=== PATIENT | male | born 1955 | race Caucasian/White ===

== ENCOUNTER 2021-12-08 19:23 | Inpatient (IN) | payer OTHER, MEDICAID ==
[2021-12-08] MEDS ORDERED: cefTRIAXone\\ROCEPHIN 1 GM VIAL ONE (19:48)
[2021-12-08] MEDS ORDERED: Vancomycin 1 GM/200 ML BAG ONE (19:48)
[2021-12-08 20:09] LABS: Hemoglobin 14.9 g/dL (14.0-18.0); Mean Corpuscular HGB CONC 32.3 g/dL (32.0-36.0); Mean Corpuscular Volume 89.7 fL (78.0-98.0); Mean Platelet Volume 9.1 fL (7.4-10.4); Platelet Count 256 thou/uL (130-400); RBC Distribution Width 12.9 % (11.5-14.5); Red Blood Cell (RBC) Count 5.16 mill/uL (4.70-6.10); White Blood Cell (WBC) Count 22.9 thou/uL (4.8-10.8)
[2021-12-08 20:12] LABS: Base Excess -18.4 mEq/L (-2.0 to +3.0); Calcium, Ionized (venous) 1.07 mmol/L (1.16-1.32); Chloride (VBG) 95 mmol/L (98-106); Hemoglobin (Hb) 15.6 g/dL (12.6-17.4); Potassium (VBG) 6.03 mmol/L (3.70-5.30); Sodium 127.1 mmol/L (133-146)
[2021-12-08 20:14] LABS: Bilirubin Negative (Negative); Blood, Urine 3+ (Negative); Clarity Extra Turbid (Clear); Glucose, Urine (Dipstick) Greater than 1000 mg/dL (Negative); Ketone, Urine 60 mg/dL (Negative); Leukocyte 500 Leu/uL (Negative); Nitrite 1+ (Negative); Protein, Urine (Dipstick) 50 mg/dL (Neg-Trace); RBC/HPF 21-50 HPF (0-3); Specific Gravity, Urine 1.021 (1.002-1.036); Squamous Epithelial 0-3 HPF (0-3); Urobilinogen Normal mg/dL (Less than 2); WBC/HPF Greater than 50 HPF (0-3); pH, Urine 5.5 (5.0-9.0)
[2021-12-08 20:15] LABS: Bacteria/HPF 1+ HPF (None Seen)
[2021-12-08 20:23] LABS: Band 3 % (5-11); Lymphocytes 6 % (21-51); MDiff Complete? YES; Monocytes 4 % (0-10); Neutrophil 87 % (42-75)
[2021-12-08] MEDS ORDERED: Insulin Regular 300 UNITS/3 ML VIAL ONE (20:31)
[2021-12-08 20:34] LABS: ALT (SGPT) 7 U/L (8-55); AST (SGOT) 17 U/L (5-34); Albumin 3.9 g/dL (3.4-4.8); Alkaline Phosphatase 116 U/L (40-110); Anion Gap 32 mmol/L (10-20); BUN (Urea Nitrogen) 48 mg/dL (8.4-25.7); Bilirubin, Total 0.5 mg/dL (0.2-1.2); Calc. Creatinine Clearance 0 mL/min (70-130); Calcium 8.9 mg/dL (7.8-10.44); Carbon Dioxide 8 mmol/L (23-31); Chloride 93 mmol/L (98-107); Estimated GFR 23; Globulin 4.2 g/dL (2.4-3.5); Lipase 7 U/L (8-78); Potassium 6.3 mmol/L (3.5-5.1); Protein, Total 8.1 g/dL (5.8-8.1); Sodium 127 mmol/L (136-145)
[2021-12-08 20:37] LABS: Glucose 789 mg/dL (80-115)
[2021-12-08] MEDS ORDERED: INSULIN REGULAR IN 0.9 % NACL 100 UNIT/100 ML BAG ONE (20:46)
[2021-12-08] MEDS ORDERED: Ondansetron ODT 4 MG TAB PO PRN (21:02)
[2021-12-08] MEDS ORDERED: Acetaminophen 325 MG TAB PO PRN (21:02)
[2021-12-08] MEDS ORDERED: Acetaminophen 650 MG Suppository PR PRN (21:02)
[2021-12-08] MEDS ORDERED: Dextrose 5 %-0.45 % NaCl 1,000 ML IV PRN (21:02)
[2021-12-08] MEDS ORDERED: Electrolyte Replacement Protocol 1 EACH IVPB PRN (21:02)
[2021-12-08] MEDS ORDERED: NS 0.9% w/ 20 MEQ KCL 1,000 ML IV PRN ×2 (21:02)
[2021-12-08] MEDS ORDERED: Sodium Chloride 0.9% 1,000 ML IV PRN ×4 (21:02)
[2021-12-08] MEDS ORDERED: HUMULIN R 100 UNITS in Sodium Chloride 0.9% 100 ML IVPB SCH (21:15)
[2021-12-08 21:39] LABS: pH (venous) 7.17 (7.32-7.43)
[2021-12-08 21:40] LABS: Actual Bicarbonate (HCO3v) 8 mEq/L (22-28)
[2021-12-08] MEDS ORDERED: Electrolyte Replacement Protocol 1 EACH FS SCH (21:45)
[2021-12-08 22:25] LABS: Magnesium 2.4 mg/dL (1.6-2.6); Phosphorus 6.7 mg/dL (2.3-4.7)
[2021-12-08 22:32] VITALS: BMI 20.2
[2021-12-08] MEDS ORDERED: Cefepime 2 GM in Sodium Chloride 0.9% 100 ML IVPB SCH (23:00)
[2021-12-09] LABS: Lactic Acid 3.3 mmol/L (0.5-2.2)
[2021-12-09 00:09] LABS: Calcium 8.6 mg/dL (7.8-10.44); Chloride 103 mmol/L (98-107); Potassium 4.6 mmol/L (3.5-5.1); Sodium 134 mmol/L (136-145)
[2021-12-09 00:17] LABS: Glucose 333 mg/dL (80-115)
[2021-12-09 00:21] LABS: Calc. Creatinine Clearance 26 mL/min (70-130); Estimated GFR 29
[2021-12-09 00:22] LABS: BUN (Urea Nitrogen) 44 mg/dL (8.4-25.7)
[2021-12-09 00:32] LABS: Carbon Dioxide Less than 8 mmol/L (23-31)
[2021-12-09] MEDS: D5 1/2 NS w/20 mEq KCL 1,000 ML IV PRN ×2 (01:08→05:00)
[2021-12-09 04:41] LABS: Anion Gap 19 mmol/L (10-20); BUN (Urea Nitrogen) 38 mg/dL (8.4-25.7); Calc. Creatinine Clearance 31 mL/min (70-130); Calcium 8.7 mg/dL (7.8-10.44); Carbon Dioxide 15 mmol/L (23-31); Chloride 107 mmol/L (98-107); Estimated GFR 37; Glucose 297 mg/dL (80-115); Potassium 4.7 mmol/L (3.5-5.1); Sodium 136 mmol/L (136-145)
[2021-12-09] MEDS: Enoxaparin Sodium 30 MG/0.3 ML SYRINGE SC SCH ×2 (07:13→20:42)
[2021-12-09 07:34] LABS: #Lymphocytes 1.6 thou/uL (1.20-3.40); #Monocytes 1.2 thou/uL (0.11-0.59); #Neutrophils 15.9 thou/uL (1.40-6.50); %Basophils 0.2 % (0.0-1.0); %Eosinophils 0.1 % (0.0-10.0); %Lymphocytes 8.7 % (21.0-51.0); %Monocytes 6.6 % (0.0-10.0); %Neutrophils 84.4 % (42.0-75.0); Hemoglobin 12.4 g/dL (14.0-18.0); Mean Corpuscular HGB CONC 32.8 g/dL (32.0-36.0); Mean Corpuscular Hemoglobin 28.7 pg (27.0-31.0); Mean Corpuscular Volume 87.6 fL (78.0-98.0); Mean Platelet Volume 8.7 fL (7.4-10.4); Platelet Count 234 thou/uL (130-400); RBC Distribution Width 12.4 % (11.5-14.5); Red Blood Cell (RBC) Count 4.33 mill/uL (4.70-6.10); White Blood Cell (WBC) Count 18.8 thou/uL (4.8-10.8)
[2021-12-09 07:55] LABS: Anion Gap 15 mmol/L (10-20); BUN (Urea Nitrogen) 33 mg/dL (8.4-25.7); Calc. Creatinine Clearance 36 mL/min (70-130); Calcium 8.4 mg/dL (7.8-10.44); Carbon Dioxide 15 mmol/L (23-31); Chloride 108 mmol/L (98-107); Estimated GFR 44; Glucose 293 mg/dL (80-115); Potassium 4.1 mmol/L (3.5-5.1); Sodium 134 mmol/L (136-145)
[2021-12-09] MEDS ORDERED: Enoxaparin Sodium 40 MG/0.4 ML SYRINGE SC SCH (09:00)
[2021-12-09] MEDS ORDERED: VANCOMYCIN 1.25 GM/250 ML BAG 1.25 GM in Premix Bag 1 BAG IVPB SCH (09:00)
[2021-12-09] MEDS ORDERED: Insulin Glargine 30 UNITS/0.3 ML VIAL SC SCH ×2 (10:30→12:00)
[2021-12-09] MEDS ORDERED: Dextrose 50% Abboject 50 ML SYRINGE SLOW IVP PRN (11:57)
[2021-12-09] MEDS ORDERED: Dextrose 5% in Water 1,000 ML IV PRN (11:57)
[2021-12-09] MEDS ORDERED: Potassium Chloride 20 MEQ in Premix Bag 1 BAG IVPB SCH (12:00)
[2021-12-09] MEDS: HumaLOG 300 UNITS/3 ML VIAL SC SCH ×2 (12:08→18:08)
[2021-12-09] MEDS: Insulin Glargine 30 UNITS/0.3 ML VIAL SC SCH (12:13)
[2021-12-09 12:17] LABS: Anion Gap 15 mmol/L (10-20); BUN (Urea Nitrogen) 27 mg/dL (8.4-25.7); Calc. Creatinine Clearance 41 mL/min (70-130); Calcium 8.4 mg/dL (7.8-10.44); Carbon Dioxide 12 mmol/L (23-31); Chloride 111 mmol/L (98-107); Estimated GFR 51; Glucose 150 mg/dL (80-115); Potassium 4.3 mmol/L (3.5-5.1); Sodium 134 mmol/L (136-145)
[2021-12-09] MEDS ORDERED: D5 1/2 NS w/20 mEq KCL 1,000 ML IV SCH (14:01)
[2021-12-09] MEDS: HumaLOG 300 UNITS/3 ML VIAL SC PRN (20:42)
[2021-12-09] MEDS: Ondansetron PF 4 MG/2 ML Vial IVP PRN (20:42)
[2021-12-09 21:44] LABS: Vancomycin, Random 6.1 ug/mL (See Comment)
[2021-12-09] MEDS ORDERED: Vancomycin HCl 500 MG in Sodium Chloride 0.9% 100 ML IVPB SCH (22:00)
[2021-12-09] MEDS ORDERED: Vancomycin 1 GM in Premix Bag 1 BAG IVPB SCH (22:00)
[2021-12-09] MEDS ORDERED: Cefepime 2 GM in Sodium Chloride 0.9% 100 ML IVPB SCH (22:00)
[2021-12-10] MEDS ORDERED: Ondansetron PF 4 MG/2 ML Vial IVP SCH (00:45)
[2021-12-10] MEDS: Sodium Chloride 0.9% 1,000 ML IV SCH ×2 (00:58→11:09)
[2021-12-10] MEDS ORDERED: Pantoprazole 40 MG VIAL IVP SCH (01:00)
[2021-12-10 01:28] LABS: #Lymphocytes 1.4 thou/uL (1.20-3.40); #Monocytes 0.8 thou/uL (0.11-0.59); #Neutrophils 14.3 thou/uL (1.40-6.50); %Eosinophils 0.1 % (0.0-10.0); %Lymphocytes 8.4 % (21.0-51.0); %Neutrophils 86.5 % (42.0-75.0); Mean Corpuscular HGB CONC 33.4 g/dL (32.0-36.0); Mean Corpuscular Hemoglobin 28.6 pg (27.0-31.0); Mean Corpuscular Volume 85.6 fL (78.0-98.0); Mean Platelet Volume 8.3 fL (7.4-10.4); Platelet Count 234 thou/uL (130-400); RBC Distribution Width 12.9 % (11.5-14.5); Red Blood Cell (RBC) Count 4.89 mill/uL (4.70-6.10); White Blood Cell (WBC) Count 16.5 thou/uL (4.8-10.8)
[2021-12-10 01:44] LABS: Lactic Acid 1.3 mmol/L (0.5-2.2)
[2021-12-10 01:48] LABS: ALT (SGPT) 14 U/L (8-55); AST (SGOT) 29 U/L (5-34); Albumin 3.5 g/dL (3.4-4.8); Alkaline Phosphatase 88 U/L (40-110); Anion Gap 22 mmol/L (10-20); BUN (Urea Nitrogen) 22 mg/dL (8.4-25.7); Bilirubin, Total 0.6 mg/dL (0.2-1.2); Calc. Creatinine Clearance 45 mL/min (70-130); Carbon Dioxide 17 mmol/L (23-31); Chloride 103 mmol/L (98-107); Estimated GFR 58; Globulin 3.6 g/dL (2.4-3.5); Glucose 292 mg/dL (80-115); Potassium 4.2 mmol/L (3.5-5.1); Protein, Total 7.1 g/dL (5.8-8.1); Sodium 138 mmol/L (136-145)
[2021-12-10 04:27] LABS: Anion Gap 17 mmol/L (10-20); BUN (Urea Nitrogen) 21 mg/dL (8.4-25.7); Calc. Creatinine Clearance 56 mL/min (70-130); Calcium 7.6 mg/dL (7.8-10.44); Carbon Dioxide 16 mmol/L (23-31); Chloride 110 mmol/L (98-107); Estimated GFR 74; Glucose 274 mg/dL (80-115); Potassium 3.6 mmol/L (3.5-5.1); Sodium 139 mmol/L (136-145)
[2021-12-10] MEDS: HumaLOG 300 UNITS/3 ML VIAL SC PRN (05:56)
[2021-12-10] MEDS: HumaLOG 300 UNITS/3 ML VIAL SC SCH ×3 (07:16→15:08)
[2021-12-10] MEDS: Pantoprazole 40 MG VIAL IVP SCH ×2 (07:24→20:18)
[2021-12-10] MEDS: Enoxaparin Sodium 30 MG/0.3 ML SYRINGE SC SCH (07:24)
[2021-12-10] MEDS: Insulin Glargine 30 UNITS/0.3 ML VIAL SC SCH (07:25)
[2021-12-10] MEDS ORDERED: Insulin Glargine 30 UNITS/0.3 ML VIAL SC SCH ×3 (09:00→10:45)
[2021-12-10] MEDS ORDERED: CEFEPIME IVPB PRN (11:06)
[2021-12-10 11:32] LABS: Prothrombin Time 13.4 sec (12.0-14.7)
[2021-12-10] MEDS: Cefepime 1 GM in Sodium Chloride 0.9% 100 ML IVPB SCH ×2 (12:29→23:27)
[2021-12-11 04:04] LABS: #Lymphocytes 2.4 thou/uL (1.20-3.40); #Monocytes 0.8 thou/uL (0.11-0.59); #Neutrophils 9.5 thou/uL (1.40-6.50); %Basophils 0.3 % (0.0-1.0); %Eosinophils 0.3 % (0.0-10.0); %Lymphocytes 18.9 % (21.0-51.0); %Monocytes 6.1 % (0.0-10.0); %Neutrophils 74.4 % (42.0-75.0); Hemoglobin 12.9 g/dL (14.0-18.0); Mean Corpuscular HGB CONC 33.2 g/dL (32.0-36.0); Mean Corpuscular Hemoglobin 28.8 pg (27.0-31.0); Mean Corpuscular Volume 86.7 fL (78.0-98.0); Mean Platelet Volume 8.6 fL (7.4-10.4); Platelet Count 213 thou/uL (130-400); RBC Distribution Width 12.8 % (11.5-14.5); Red Blood Cell (RBC) Count 4.49 mill/uL (4.70-6.10); White Blood Cell (WBC) Count 12.8 thou/uL (4.8-10.8)
[2021-12-11 04:26] LABS: Anion Gap 16 mmol/L (10-20); BUN (Urea Nitrogen) 16 mg/dL (8.4-25.7); Calc. Creatinine Clearance 56 mL/min (70-130); Calcium 8.7 mg/dL (7.8-10.44); Carbon Dioxide 21 mmol/L (23-31); Chloride 104 mmol/L (98-107); Estimated GFR 76; Glucose 216 mg/dL (80-115); Potassium 3.4 mmol/L (3.5-5.1); Sodium 138 mmol/L (136-145)
[2021-12-11] MEDS: HumaLOG 300 UNITS/3 ML VIAL SC PRN ×2 (06:09→20:58)
[2021-12-11] MEDS ORDERED: Potassium Chloride 20 MEQ TAB PO SCH (08:30)
[2021-12-11] MEDS ORDERED: VANCOMYCIN IVPB PRN (09:55)
[2021-12-11] MEDS: Enoxaparin Sodium 40 MG/0.4 ML SYRINGE SC SCH (10:20)
[2021-12-11] MEDS: Pantoprazole 40 MG VIAL IVP SCH ×2 (10:21→20:56)
[2021-12-11] MEDS: Insulin Glargine 30 UNITS/0.3 ML VIAL SC SCH (10:21)
[2021-12-11] MEDS: HumaLOG 300 UNITS/3 ML VIAL SC SCH ×3 (10:21→16:55)
[2021-12-11] MEDS: VANCOMYCIN 1.25 GM/250 ML BAG 1.25 GM in Premix Bag 1 BAG IVPB SCH (10:42)
[2021-12-11] MEDS: Cefepime 1 GM in Sodium Chloride 0.9% 100 ML IVPB SCH ×2 (12:29→23:38)
[2021-12-11] MEDS: Ondansetron PF 4 MG/2 ML Vial IVP PRN (16:02)
[2021-12-11] MEDS: Baclofen 10 MG TAB PO SCH (20:56)
[2021-12-12 07:02] LABS: #Eosinphils 0.1 thou/uL (0.0-0.7); #Lymphocytes 2.3 thou/uL (1.20-3.40); #Monocytes 0.6 thou/uL (0.11-0.59); #Neutrophils 6.9 thou/uL (1.40-6.50); %Basophils 0.1 % (0.0-1.0); %Lymphocytes 23.2 % (21.0-51.0); %Monocytes 6.5 % (0.0-10.0); %Neutrophils 69.3 % (42.0-75.0); Hemoglobin 13.4 g/dL (14.0-18.0); Mean Corpuscular HGB CONC 32.7 g/dL (32.0-36.0); Mean Corpuscular Hemoglobin 28.7 pg (27.0-31.0); Mean Corpuscular Volume 87.9 fL (78.0-98.0); Mean Platelet Volume 8.4 fL (7.4-10.4); Platelet Count 224 thou/uL (130-400); RBC Distribution Width 12.6 % (11.5-14.5); Red Blood Cell (RBC) Count 4.66 mill/uL (4.70-6.10); White Blood Cell (WBC) Count 9.9 thou/uL (4.8-10.8)
[2021-12-12 07:21] LABS: Anion Gap 14 mmol/L (10-20); BUN (Urea Nitrogen) 14 mg/dL (8.4-25.7); Calc. Creatinine Clearance 52 mL/min (70-130); Calcium 8.8 mg/dL (7.8-10.44); Carbon Dioxide 25 mmol/L (23-31); Chloride 104 mmol/L (98-107); Estimated GFR 69; Glucose 86 mg/dL (80-115); Potassium 3.3 mmol/L (3.5-5.1); Sodium 140 mmol/L (136-145)
[2021-12-12] MEDS ORDERED: Potassium Chloride 20 MEQ TAB PO SCH (08:00)
[2021-12-12] MEDS: Insulin Glargine 30 UNITS/0.3 ML VIAL SC SCH (08:43)
[2021-12-12] MEDS: Pantoprazole 40 MG VIAL IVP SCH ×2 (08:44→21:45)
[2021-12-12] MEDS: Enoxaparin Sodium 40 MG/0.4 ML SYRINGE SC SCH (08:44)
[2021-12-12] MEDS: Baclofen 10 MG TAB PO SCH ×3 (08:44→21:45)
[2021-12-12] MEDS: HumaLOG 300 UNITS/3 ML VIAL SC SCH ×3 (08:45→18:02)
[2021-12-12] MEDS: VANCOMYCIN 1.25 GM/250 ML BAG 1.25 GM in Premix Bag 1 BAG IVPB SCH (08:57)
[2021-12-12] MEDS: Cefepime 1 GM in Sodium Chloride 0.9% 100 ML IVPB SCH (12:07)
[2021-12-12] MEDS: HumaLOG 300 UNITS/3 ML VIAL SC PRN (18:02)
[2021-12-12] MEDS: Metoclopramide HCl 10 MG/2 ML VIAL IVP SCH (21:45)
[2021-12-12] MEDS: Finasteride 5 MG TAB PO SCH (21:45)
[2021-12-13] MEDS: Cefepime 1 GM in Sodium Chloride 0.9% 100 ML IVPB SCH ×3 (00:01→23:22)
[2021-12-13] MEDS: HumaLOG 300 UNITS/3 ML VIAL SC PRN ×3 (05:26→17:31)
[2021-12-13] MEDS: Metoclopramide HCl 10 MG/2 ML VIAL IVP SCH ×3 (05:30→20:41)
[2021-12-13 05:55] LABS: #Eosinphils 0.1 thou/uL (0.0-0.7); #Lymphocytes 2.1 thou/uL (1.20-3.40); #Monocytes 0.8 thou/uL (0.11-0.59); %Basophils 0.1 % (0.0-1.0); %Eosinophils 1.3 % (0.0-10.0); %Lymphocytes 18.7 % (21.0-51.0); %Monocytes 7.1 % (0.0-10.0); %Neutrophils 72.7 % (42.0-75.0); Hemoglobin 13.2 g/dL (14.0-18.0); Mean Corpuscular HGB CONC 33.2 g/dL (32.0-36.0); Mean Corpuscular Hemoglobin 28.9 pg (27.0-31.0); Mean Corpuscular Volume 87.3 fL (78.0-98.0); Mean Platelet Volume 8.5 fL (7.4-10.4); Platelet Count 216 thou/uL (130-400); RBC Distribution Width 12.6 % (11.5-14.5); Red Blood Cell (RBC) Count 4.57 mill/uL (4.70-6.10)
[2021-12-13 06:20] LABS: Anion Gap 13 mmol/L (10-20); BUN (Urea Nitrogen) 14 mg/dL (8.4-25.7); Calc. Creatinine Clearance 65 mL/min (70-130); Calcium 8.3 mg/dL (7.8-10.44); Carbon Dioxide 24 mmol/L (23-31); Chloride 105 mmol/L (98-107); Estimated GFR 89; Glucose 193 mg/dL (80-115); Potassium 3.3 mmol/L (3.5-5.1); Sodium 139 mmol/L (136-145)
[2021-12-13] MEDS ORDERED: Potassium Chloride 20 MEQ TAB PO SCH (08:00)
[2021-12-13] MEDS: Baclofen 10 MG TAB PO SCH ×3 (09:42→20:35)
[2021-12-13] MEDS: HumaLOG 300 UNITS/3 ML VIAL SC SCH ×3 (09:42→17:30)
[2021-12-13] MEDS: Tamsulosin HCl 0.4 MG CAP PO SCH (09:42)
[2021-12-13] MEDS: Donepezil HCl 5 MG TAB PO SCH (09:43)
[2021-12-13] MEDS: Insulin Glargine 30 UNITS/0.3 ML VIAL SC SCH (09:43)
[2021-12-13] MEDS: Spironolactone 25 MG TAB PO SCH (09:44)
[2021-12-13] MEDS: Enoxaparin Sodium 40 MG/0.4 ML SYRINGE SC SCH (09:44)
[2021-12-13] MEDS: Pantoprazole 40 MG VIAL IVP SCH ×2 (09:44→20:36)
[2021-12-13 10:00] LABS: Vancomycin, Trough 10.2 ug/mL
[2021-12-13] MEDS: VANCOMYCIN 1.25 GM/250 ML BAG 1.25 GM in Premix Bag 1 BAG IVPB SCH (11:00)
[2021-12-13] MEDS: Finasteride 5 MG TAB PO SCH (20:36)
[2021-12-14] MEDS: Metoclopramide HCl 10 MG/2 ML VIAL IVP SCH ×3 (05:18→20:29)
[2021-12-14 06:41] LABS: Hemoglobin 13.3 g/dL (14.0-18.0); Mean Corpuscular Volume 87.4 fL (78.0-98.0); Red Blood Cell (RBC) Count 4.73 mill/uL (4.70-6.10); White Blood Cell (WBC) Count 9.6 thou/uL (4.8-10.8)
[2021-12-14 06:42] LABS: %Lymphocytes 24.7 % (21.0-51.0); %Neutrophils 62.1 % (42.0-75.0); Mean Corpuscular HGB CONC 32.2 g/dL (32.0-36.0); Mean Corpuscular Hemoglobin 28.2 pg (27.0-31.0); Mean Platelet Volume 8.1 fL (7.4-10.4); Platelet Count 224 thou/uL (130-400); RBC Distribution Width 12.8 % (11.5-14.5)
[2021-12-14 06:43] LABS: #Lymphocytes 2.4 thou/uL (1.20-3.40); %Basophils 0.8 % (0.0-1.0); %Eosinophils 3.5 % (0.0-10.0); %Monocytes 8.9 % (0.0-10.0)
[2021-12-14 06:44] LABS: #Eosinphils 0.3 thou/uL (0.0-0.7); #Monocytes 0.9 thou/uL (0.11-0.59)
[2021-12-14 06:52] LABS: Anion Gap 13 mmol/L (10-20); BUN (Urea Nitrogen) 13 mg/dL (8.4-25.7); Calc. Creatinine Clearance 62 mL/min (70-130); Calcium 8.7 mg/dL (7.8-10.44); Carbon Dioxide 24 mmol/L (23-31); Chloride 103 mmol/L (98-107); Estimated GFR 85; Glucose 153 mg/dL (80-115); Potassium 3.4 mmol/L (3.5-5.1); Sodium 137 mmol/L (136-145)
[2021-12-14] MEDS ORDERED: Potassium Chloride 20 MEQ TAB PO SCH (09:00)
[2021-12-14] MEDS: Baclofen 10 MG TAB PO SCH ×3 (09:29→20:29)
[2021-12-14] MEDS: Tamsulosin HCl 0.4 MG CAP PO SCH (09:29)
[2021-12-14] MEDS: Enoxaparin Sodium 40 MG/0.4 ML SYRINGE SC SCH (09:30)
[2021-12-14] MEDS: Insulin Glargine 30 UNITS/0.3 ML VIAL SC SCH (09:30)
[2021-12-14] MEDS: Donepezil HCl 5 MG TAB PO SCH (09:30)
[2021-12-14] MEDS: Spironolactone 25 MG TAB PO SCH (09:30)
[2021-12-14] MEDS: HumaLOG 300 UNITS/3 ML VIAL SC SCH ×3 (09:31→17:42)
[2021-12-14] MEDS: Pantoprazole 40 MG VIAL IVP SCH ×2 (09:31→20:29)
[2021-12-14] MEDS: VANCOMYCIN 1.25 GM/250 ML BAG 1.25 GM in Premix Bag 1 BAG IVPB SCH (09:55)
[2021-12-14] MEDS: Cefepime 1 GM in Sodium Chloride 0.9% 100 ML IVPB SCH ×2 (12:51→23:38)
[2021-12-14] MEDS: HumaLOG 300 UNITS/3 ML VIAL SC PRN (12:52)
[2021-12-14] MEDS: Finasteride 5 MG TAB PO SCH (20:29)
[2021-12-14] MEDS ORDERED: Metoclopramide HCl 10 MG/2 ML VIAL IVP PRN (20:52)
[2021-12-15 07:11] LABS: #Eosinphils 0.2 thou/uL (0.0-0.7); %Basophils 0.4 % (0.0-1.0); %Eosinophils 2.6 % (0.0-10.0); %Lymphocytes 24.3 % (21.0-51.0); %Monocytes 12.1 % (0.0-10.0); %Neutrophils 60.5 % (42.0-75.0); Hemoglobin 12.6 g/dL (14.0-18.0); Mean Corpuscular HGB CONC 32.9 g/dL (32.0-36.0); Mean Corpuscular Hemoglobin 28.8 pg (27.0-31.0); Mean Corpuscular Volume 87.4 fL (78.0-98.0); Mean Platelet Volume 8.3 fL (7.4-10.4); Platelet Count 229 thou/uL (130-400); RBC Distribution Width 12.8 % (11.5-14.5); Red Blood Cell (RBC) Count 4.38 mill/uL (4.70-6.10); White Blood Cell (WBC) Count 8.3 thou/uL (4.8-10.8)
[2021-12-15 07:31] LABS: Anion Gap 13 mmol/L (10-20); BUN (Urea Nitrogen) 13 mg/dL (8.4-25.7); Calc. Creatinine Clearance 64 mL/min (70-130); Calcium 8.5 mg/dL (7.8-10.44); Carbon Dioxide 23 mmol/L (23-31); Chloride 104 mmol/L (98-107); Estimated GFR 87; Glucose 193 mg/dL (80-115); Potassium 3.7 mmol/L (3.5-5.1); Sodium 136 mmol/L (136-145)
[2021-12-15] MEDS: Baclofen 10 MG TAB PO SCH ×3 (09:00→20:07)
[2021-12-15] MEDS: Spironolactone 25 MG TAB PO SCH (09:02)
[2021-12-15] MEDS: Pantoprazole 40 MG VIAL IVP SCH ×2 (09:02→20:07)
[2021-12-15] MEDS: Tamsulosin HCl 0.4 MG CAP PO SCH (09:03)
[2021-12-15] MEDS: Enoxaparin Sodium 40 MG/0.4 ML SYRINGE SC SCH (09:03)
[2021-12-15] MEDS: Donepezil HCl 5 MG TAB PO SCH (09:03)
[2021-12-15] MEDS: HumaLOG 300 UNITS/3 ML VIAL SC SCH ×3 (09:08→17:48)
[2021-12-15] MEDS: Insulin Glargine 30 UNITS/0.3 ML VIAL SC SCH (09:08)
[2021-12-15 10:08] LABS: Vancomycin, Trough 12.9 ug/mL
[2021-12-15] MEDS: VANCOMYCIN 1.25 GM/250 ML BAG 1.25 GM in Premix Bag 1 BAG IVPB SCH (11:17)
[2021-12-15] MEDS: HumaLOG 300 UNITS/3 ML VIAL SC PRN (12:00)
[2021-12-15] MEDS: Cefepime 1 GM in Sodium Chloride 0.9% 100 ML IVPB SCH (14:12)
[2021-12-15] MEDS: Finasteride 5 MG TAB PO SCH (20:06)
[2021-12-16] MEDS: Cefepime 1 GM in Sodium Chloride 0.9% 100 ML IVPB SCH ×3 (00:36→23:08)
[2021-12-16 06:32] LABS: #Eosinphils 0.3 thou/uL (0.0-0.7); #Monocytes 1.1 thou/uL (0.11-0.59); #Neutrophils 4.9 thou/uL (1.40-6.50); %Basophils 0.5 % (0.0-1.0); %Eosinophils 3.9 % (0.0-10.0); %Lymphocytes 24.2 % (21.0-51.0); %Monocytes 13.2 % (0.0-10.0); %Neutrophils 58.2 % (42.0-75.0); Hemoglobin 12.8 g/dL (14.0-18.0); Mean Corpuscular HGB CONC 32.8 g/dL (32.0-36.0); Mean Corpuscular Hemoglobin 28.6 pg (27.0-31.0); Mean Corpuscular Volume 87.1 fL (78.0-98.0); Platelet Count 226 thou/uL (130-400); RBC Distribution Width 12.7 % (11.5-14.5); Red Blood Cell (RBC) Count 4.47 mill/uL (4.70-6.10); White Blood Cell (WBC) Count 8.3 thou/uL (4.8-10.8)
[2021-12-16 06:52] LABS: Anion Gap 14 mmol/L (10-20); BUN (Urea Nitrogen) 13 mg/dL (8.4-25.7); Calc. Creatinine Clearance 58 mL/min (70-130); Calcium 8.5 mg/dL (7.8-10.44); Carbon Dioxide 24 mmol/L (23-31); Chloride 102 mmol/L (98-107); Estimated GFR 78; Glucose 199 mg/dL (80-115); Potassium 3.9 mmol/L (3.5-5.1); Sodium 136 mmol/L (136-145)
[2021-12-16] MEDS: Tamsulosin HCl 0.4 MG CAP PO SCH (08:14)
[2021-12-16] MEDS: HumaLOG 300 UNITS/3 ML VIAL SC SCH ×3 (08:14→16:49)
[2021-12-16] MEDS: Donepezil HCl 5 MG TAB PO SCH (08:14)
[2021-12-16] MEDS: Baclofen 10 MG TAB PO SCH ×3 (08:14→19:57)
[2021-12-16] MEDS: Insulin Glargine 30 UNITS/0.3 ML VIAL SC SCH (08:14)
[2021-12-16] MEDS: Pantoprazole 40 MG VIAL IVP SCH (08:14)
[2021-12-16] MEDS: Spironolactone 25 MG TAB PO SCH (08:14)
[2021-12-16] MEDS: Enoxaparin Sodium 40 MG/0.4 ML SYRINGE SC SCH (08:15)
[2021-12-16] MEDS: VANCOMYCIN 1.25 GM/250 ML BAG 1.25 GM in Premix Bag 1 BAG IVPB SCH (08:23)
[2021-12-16] MEDS: Finasteride 5 MG TAB PO SCH (19:58)
[2021-12-17 06:14] LABS: #Eosinphils 0.2 thou/uL (0.0-0.7); #Lymphocytes 2.4 thou/uL (1.20-3.40); #Monocytes 0.9 thou/uL (0.11-0.59); #Neutrophils 4.9 thou/uL (1.40-6.50); %Basophils 0.3 % (0.0-1.0); %Eosinophils 2.7 % (0.0-10.0); %Lymphocytes 28.6 % (21.0-51.0); %Monocytes 10.7 % (0.0-10.0); %Neutrophils 57.7 % (42.0-75.0); Hemoglobin 12.8 g/dL (14.0-18.0); Mean Corpuscular HGB CONC 33.2 g/dL (32.0-36.0); Mean Corpuscular Hemoglobin 28.9 pg (27.0-31.0); Mean Platelet Volume 7.9 fL (7.4-10.4); Platelet Count 245 thou/uL (130-400); RBC Distribution Width 12.8 % (11.5-14.5); Red Blood Cell (RBC) Count 4.45 mill/uL (4.70-6.10); White Blood Cell (WBC) Count 8.5 thou/uL (4.8-10.8)
[2021-12-17 06:25] LABS: Anion Gap 15 mmol/L (10-20); BUN (Urea Nitrogen) 13 mg/dL (8.4-25.7); Calc. Creatinine Clearance 54 mL/min (70-130); Calcium 8.5 mg/dL (7.8-10.44); Carbon Dioxide 23 mmol/L (23-31); Chloride 103 mmol/L (98-107); Estimated GFR 71; Glucose 265 mg/dL (80-115); Potassium 3.5 mmol/L (3.5-5.1); Sodium 137 mmol/L (136-145)
[2021-12-17] MEDS ORDERED: Potassium Chloride 20 MEQ TAB PO SCH (08:00)
[2021-12-17] MEDS: Baclofen 10 MG TAB PO SCH ×3 (08:32→20:02)
[2021-12-17] MEDS: Spironolactone 25 MG TAB PO SCH (08:32)
[2021-12-17] MEDS: Insulin Glargine 30 UNITS/0.3 ML VIAL SC SCH (08:33)
[2021-12-17] MEDS: Donepezil HCl 5 MG TAB PO SCH (08:33)
[2021-12-17] MEDS: Amlodipine 10 MG TAB PO SCH (08:33)
[2021-12-17] MEDS: Enoxaparin Sodium 40 MG/0.4 ML SYRINGE SC SCH (08:33)
[2021-12-17] MEDS: Tamsulosin HCl 0.4 MG CAP PO SCH (08:33)
[2021-12-17] MEDS: HumaLOG 300 UNITS/3 ML VIAL SC SCH ×3 (08:34→17:16)
[2021-12-17] MEDS: Cefepime 1 GM in Sodium Chloride 0.9% 100 ML IVPB SCH (13:01)
[2021-12-17] MEDS: HumaLOG 300 UNITS/3 ML VIAL SC PRN (13:02)
[2021-12-17] MEDS: Finasteride 5 MG TAB PO SCH (20:03)
[2021-12-18] MEDS: Cefepime 1 GM in Sodium Chloride 0.9% 100 ML IVPB SCH (01:27)
[2021-12-18] MEDS: Spironolactone 25 MG TAB PO SCH (08:13)
[2021-12-18] MEDS: Baclofen 10 MG TAB PO SCH ×3 (08:13→20:19)
[2021-12-18] MEDS: Enoxaparin Sodium 40 MG/0.4 ML SYRINGE SC SCH (08:13)
[2021-12-18] MEDS: Tamsulosin HCl 0.4 MG CAP PO SCH (08:13)
[2021-12-18] MEDS: Donepezil HCl 5 MG TAB PO SCH (08:13)
[2021-12-18] MEDS: Amlodipine 10 MG TAB PO SCH (08:14)
[2021-12-18] MEDS: Insulin Glargine 30 UNITS/0.3 ML VIAL SC SCH (08:14)
[2021-12-18] MEDS: HumaLOG 300 UNITS/3 ML VIAL SC SCH ×3 (08:18→17:34)
[2021-12-18] MEDS: HumaLOG 300 UNITS/3 ML VIAL SC PRN ×3 (12:24→20:21)
[2021-12-18] MEDS: Finasteride 5 MG TAB PO SCH (20:19)
[2021-12-19] MEDS: HumaLOG 300 UNITS/3 ML VIAL SC PRN ×4 (05:47→20:23)
[2021-12-19] MEDS: Baclofen 10 MG TAB PO SCH ×3 (08:43→20:22)
[2021-12-19] MEDS: Spironolactone 25 MG TAB PO SCH (08:43)
[2021-12-19] MEDS: Amlodipine 10 MG TAB PO SCH (08:43)
[2021-12-19] MEDS: Donepezil HCl 5 MG TAB PO SCH (08:43)
[2021-12-19] MEDS: Insulin Glargine 30 UNITS/0.3 ML VIAL SC SCH (08:43)
[2021-12-19] MEDS: Tamsulosin HCl 0.4 MG CAP PO SCH (08:43)
[2021-12-19] MEDS: HumaLOG 300 UNITS/3 ML VIAL SC SCH ×3 (08:44→16:44)
[2021-12-19] MEDS: Enoxaparin Sodium 40 MG/0.4 ML SYRINGE SC SCH (08:45)
[2021-12-19] MEDS ORDERED: Magnesium Citrate 300 ML BOT PO SCH (11:30)
[2021-12-19] MEDS ORDERED: Bisacodyl 10 MG SUPP PR SCH (11:45)
[2021-12-19] MEDS ORDERED: Senokot S 8.6-50 MG TAB PO SCH (15:45)
[2021-12-19] MEDS: metFORMIN 500 MG TAB PO SCH (16:44)
[2021-12-19] MEDS: Finasteride 5 MG TAB PO SCH (20:22)
[2021-12-19] MEDS: Glimepiride 1 MG TAB PO SCH (20:22)
[2021-12-19] MEDS: Senokot S 8.6-50 MG TAB PO SCH (20:22)
[2021-12-20] MEDS: Tamsulosin HCl 0.4 MG CAP PO SCH (08:35)
[2021-12-20] MEDS: Baclofen 10 MG TAB PO SCH ×3 (08:35→20:23)
[2021-12-20] MEDS: metFORMIN 500 MG TAB PO SCH ×2 (08:35→16:42)
[2021-12-20] MEDS: Amlodipine 10 MG TAB PO SCH (08:35)
[2021-12-20] MEDS: Glimepiride 1 MG TAB PO SCH ×2 (08:35→20:23)
[2021-12-20] MEDS: Spironolactone 25 MG TAB PO SCH (08:35)
[2021-12-20] MEDS: Senokot S 8.6-50 MG TAB PO SCH ×2 (08:35→20:23)
[2021-12-20] MEDS: Insulin Glargine 30 UNITS/0.3 ML VIAL SC SCH (08:36)
[2021-12-20] MEDS: HumaLOG 300 UNITS/3 ML VIAL SC SCH ×3 (08:36→16:42)
[2021-12-20] MEDS: Enoxaparin Sodium 40 MG/0.4 ML SYRINGE SC SCH (08:41)
[2021-12-20] MEDS: Donepezil HCl 5 MG TAB PO SCH (08:41)
[2021-12-20] MEDS: Finasteride 5 MG TAB PO SCH (20:23)
[2021-12-21 07:56] VITALS: BP 133/80; TEMP 98.6
[2021-12-21] MEDS: Tamsulosin HCl 0.4 MG CAP PO SCH (08:12)
[2021-12-21] MEDS: Glimepiride 1 MG TAB PO SCH (08:12)
[2021-12-21] MEDS: Enoxaparin Sodium 40 MG/0.4 ML SYRINGE SC SCH (08:12)
[2021-12-21] MEDS: Amlodipine 10 MG TAB PO SCH (08:12)
[2021-12-21] MEDS: Insulin Glargine 30 UNITS/0.3 ML VIAL SC SCH (08:13)
[2021-12-21] MEDS: Donepezil HCl 5 MG TAB PO SCH (08:13)
[2021-12-21] MEDS: Spironolactone 25 MG TAB PO SCH (08:13)
[2021-12-21] MEDS: metFORMIN 500 MG TAB PO SCH ×2 (08:13→16:52)
[2021-12-21] MEDS: Baclofen 10 MG TAB PO SCH ×2 (08:13→14:19)
[2021-12-21] MEDS: Senokot S 8.6-50 MG TAB PO SCH (08:13)
[2021-12-21] MEDS: HumaLOG 300 UNITS/3 ML VIAL SC SCH ×3 (08:13→16:51)
== END 2021-12-21 19:03 | disposition home health service (06) | DRG 698 ==
LOC: ERS 19:23 → IMCU/EMU 20:41 → T4-B 12-11 23:30
PROVIDERS: ADMIT Family Medicine; ATTEND Family Medicine
DX: T83.518A Infection and inflammatory reaction due to other urinary catheter, initial encounter (principal); A41.01 Sepsis due to Methicillin susceptible Staphylococcus aureus; E11.10 Type 2 diabetes mellitus with ketoacidosis without coma; G93.41 Metabolic encephalopathy; A41.59 Other Gram-negative sepsis; N17.9 Acute kidney failure, unspecified; N39.0 Urinary tract infection, site not specified; I10 Essential (primary) hypertension; N40.0 Benign prostatic hyperplasia without lower urinary tract symptoms; Z20.822 Contact with and (suspected) exposure to COVID-19; J44.9 Chronic obstructive pulmonary disease, unspecified; E11.40 Type 2 diabetes mellitus with diabetic neuropathy, unspecified; Y84.6 Urinary catheterization as the cause of abnormal reaction of the patient, or of later complication, without mention of misadventure at the time of the procedure; I11.0 Hypertensive heart disease with heart failure; I50.9 Heart failure, unspecified; E86.0 Dehydration; Z88.6 Allergy status to analgesic agent
CPT/HCPCS: 36415; 36416; 70450; 71045; 80048; 80053; 80202; 81003; 81015; 82010; 82805; 83605; 83690; 83735; 83880; 84100; 85025; 85610; 87040; 87086; 93005; 93306; 96365; 96367; C9113; J0692; J0696; J1650; J1815; J2405; J2765; J3370; J3480; J3490; J7050; Q0162; U0003; U0005

== ENCOUNTER 2022-05-20 14:22 | Inpatient (IN) | payer OTHER, MEDICAID ==
[~2022-05-20 14:22] MED LIST: Iopamidol-370 76% 500 ML 1 ML ONE
[2022-05-20] MEDS ORDERED: Vancomycin 1 GM/200 ML (FROZEN) BAG ONE (14:33)
[2022-05-20] MEDS ORDERED: Cefepime 2 GM VIAL ONE (14:33)
[2022-05-20 15:11] LABS: Bacteria/HPF 3+ HPF (None Seen); Bilirubin Negative (Negative); Blood, Urine 2+ (Negative); Clarity Turbid (Clear); Glucose, Urine (Dipstick) Greater than 1000 mg/dL (Negative); Ketone, Urine 40 mg/dL (Negative); Leukocyte 500 Leu/uL (Negative); Nitrite 1+ (Negative); Protein, Urine (Dipstick) 200 mg/dL (Neg-Trace); Specific Gravity, Urine 1.019 (1.002-1.036); Squamous Epithelial 0-3 HPF (0-3); Urobilinogen Normal mg/dL (Less than 2); WBC/HPF Greater than 50 HPF (0-3); pH, Urine 5.5 (5.0-9.0)
[2022-05-20 15:12] LABS: Mean Corpuscular HGB CONC 32.9 g/dL (32.0-36.0); Mean Corpuscular Hemoglobin 27.6 pg (27.0-31.0); Mean Corpuscular Volume 83.8 fl (78.0-98.0); Mean Platelet Volume 8.9 fL (7.4-10.4); Platelet Count 290 10x3/uL (130-400); RBC Distribution Width 14.5 % (11.5-14.5); Red Blood Cell (RBC) Count 5.44 mill/uL (4.70-6.10); White Blood Cell (WBC) Count 18.5 10x3/uL (4.8-10.8)
[2022-05-20] MEDS ORDERED: Acetaminophen 650 MG Suppository ONE (15:17)
[2022-05-20 15:32] LABS: ALT (SGPT) 18 U/L (8-55); AST (SGOT) 17 U/L (5-34); Albumin 3.9 g/dL (3.4-4.8); Alkaline Phosphatase 110 U/L (40-110); Anion Gap 25 mmol/L (10-20); BUN (Urea Nitrogen) 28 mg/dL (8.4-25.7); Bilirubin, Total 0.3 mg/dL (0.2-1.2); Calc. Creatinine Clearance 0 mL/min (70-130); Carbon Dioxide 11 mmol/L (23-31); Chloride 108 mmol/L (98-107); Estimated GFR 50; Globulin 4.1 g/dL (2.4-3.5); Lipase 11 U/L (8-78); Potassium 4.7 mmol/L (3.5-5.1); Sodium 139 mmol/L (136-145)
[2022-05-20 15:36] LABS: Glucose 451 mg/dL (80-115)
[2022-05-20 15:48] LABS: MDiff Complete? YES
[2022-05-20 15:49] LABS: Band 3 % (5-11); Lymphocytes 6 % (21-51); Monocytes 2 % (0-10); Neutrophil 89 % (42-75); Platelet Morphology Comment Appears Adequate; RBC Morphology Normal
[2022-05-20 15:51] LABS: Prothrombin Time 13.9 sec (12.0-14.7)
[2022-05-20 15:53] LABS: CKMB 3.2 ng/mL (0-6.6)
[2022-05-20 16:39] LABS: Base Excess -12.6 mEq/L (-2.0 to +3.0); Calcium, Ionized (venous) 1.14 mmol/L (1.16-1.32); Chloride (VBG) 109 mmol/L (98-106); Hemoglobin (Hb) 15.3 g/dL (12.6-17.4); Potassium (VBG) 4.92 mmol/L (3.70-5.30); Sodium 138.7 mmol/L (133-146); pH (venous) 7.27 (7.32-7.43)
[2022-05-20 16:42] LABS: Actual Bicarbonate (HCO3v) 13 mEq/L (22-28)
[2022-05-20] MEDS ORDERED: Ondansetron PF 4 MG/2 ML Vial IVP PRN (16:43)
[2022-05-20] MEDS ORDERED: D5 1/2 NS w/20 mEq KCL 1,000 ML IV PRN (16:43)
[2022-05-20] MEDS ORDERED: Acetaminophen 325 MG TAB PO PRN (16:43)
[2022-05-20] MEDS ORDERED: NS 0.9% w/ 20 MEQ KCL 1,000 ML IV PRN ×2 (16:43)
[2022-05-20] MEDS ORDERED: Electrolyte Replacement Protocol 1 EACH IVPB PRN (16:43)
[2022-05-20] MEDS ORDERED: Dextrose 5 %-0.45 % NaCl 1,000 ML IV PRN (16:43)
[2022-05-20] MEDS ORDERED: Sodium Chloride 0.9% 1,000 ML IV PRN ×4 (16:43)
[2022-05-20] MEDS ORDERED: HUMULIN R 100 UNITS in Sodium Chloride 0.9% 100 ML IVPB SCH (16:45)
[2022-05-20] MEDS ORDERED: Magnesium 2 GM/50 ML(in water) 2 GM in Premix Bag 1 BAG IVPB SCH (17:15)
[2022-05-20] MEDS ORDERED: Magnesium 2 GM/50 ML BAG (IN WATER) ONE (17:27)
[2022-05-20] MEDS ORDERED: Vancomycin 1 GM in Premix Bag 1 BAG IVPB SCH (17:45)
[2022-05-20] MEDS ORDERED: cloNIDine 0.1 MG TAB PO PRN (18:04)
[2022-05-20] MEDS ORDERED: INSULIN REGULAR IN 0.9 % NACL 100 UNIT/100 ML BAG ONE (18:35)
[2022-05-20 18:55] LABS: Lactic Acid 1.2 mmol/L (0.5-2.2)
[2022-05-20 18:57] LABS: Anion Gap 22 mmol/L (10-20); BUN (Urea Nitrogen) 26 mg/dL (8.4-25.7); Calc. Creatinine Clearance 44 mL/min (70-130); Calcium 8.8 mg/dL (7.8-10.44); Carbon Dioxide 12 mmol/L (23-31); Chloride 108 mmol/L (98-107); Estimated GFR 58; Potassium 4.6 mmol/L (3.5-5.1); Sodium 137 mmol/L (136-145)
[2022-05-20 19:03] LABS: SARS-CoV-2 NAA Rapid Test Not Detected (NotDetected)
[2022-05-20 19:10] LABS: Glucose 416 mg/dL (80-115)
[2022-05-20 22:10] LABS: Anion Gap 16 mmol/L (10-20); BUN (Urea Nitrogen) 23 mg/dL (8.4-25.7); Calc. Creatinine Clearance 42 mL/min (70-130); Carbon Dioxide 14 mmol/L (23-31); Chloride 115 mmol/L (98-107); Estimated GFR 55; Glucose 200 mg/dL (80-115); Potassium 4.2 mmol/L (3.5-5.1); Sodium 141 mmol/L (136-145)
[2022-05-20] MEDS: Cefepime 1 GM in Sodium Chloride 0.9% 100 ML IVPB SCH (22:25)
[2022-05-21 01:17] LABS: Anion Gap 12 mmol/L (10-20); BUN (Urea Nitrogen) 21 mg/dL (8.4-25.7); Calc. Creatinine Clearance 45 mL/min (70-130); Calcium 8.7 mg/dL (7.8-10.44); Carbon Dioxide 16 mmol/L (23-31); Chloride 116 mmol/L (98-107); Estimated GFR 60; Glucose 162 mg/dL (80-115); Potassium 3.9 mmol/L (3.5-5.1); Sodium 140 mmol/L (136-145)
[2022-05-21 07:55] LABS: Anion Gap 10 mmol/L (10-20); BUN (Urea Nitrogen) 18 mg/dL (8.4-25.7); Calc. Creatinine Clearance 51 mL/min (70-130); Calcium 8.7 mg/dL (7.8-10.44); Carbon Dioxide 17 mmol/L (23-31); Chloride 116 mmol/L (98-107); Estimated GFR 69; Glucose 152 mg/dL (80-115); Sodium 139 mmol/L (136-145)
[2022-05-21 08:32] LABS: Hemoglobin 13.3 g/dL (14.0-18.0); Lymphocytes 8 % (21-51); MDiff Complete? YES; Mean Corpuscular HGB CONC 32.9 g/dL (32.0-36.0); Mean Corpuscular Hemoglobin 27.8 pg (27.0-31.0); Mean Corpuscular Volume 84.3 fl (78.0-98.0); Mean Platelet Volume 8.5 fL (7.4-10.4); Monocytes 5 % (0-10); Neutrophil 84 % (42-75); Platelet Count 248 10x3/uL (130-400); Platelet Morphology Comment Appears Adequate; Polychromasia SLIGHT = 2-3 cells (100X) (0-2/hpf); RBC Distribution Width 14.8 % (11.5-14.5); Reactive Lymphocytes 3 % (0-10); Red Blood Cell (RBC) Count 4.81 mill/uL (4.70-6.10); White Blood Cell (WBC) Count 20.6 10x3/uL (4.8-10.8)
[2022-05-21] MEDS: Cefepime 1 GM in Sodium Chloride 0.9% 100 ML IVPB SCH ×2 (09:16→20:25)
[2022-05-21] MEDS ORDERED: Dextrose 5 %-0.45 % NaCl 1,000 ML IV PRN (11:42)
[2022-05-21] MEDS ORDERED: Dextrose 5% in Water 1,000 ML IV PRN (11:44)
[2022-05-21] MEDS ORDERED: Dextrose 50% Abboject 50 ML SYRINGE SLOW IVP PRN (11:44)
[2022-05-21] MEDS ORDERED: Furosemide 40 MG TAB PO SCH (11:45)
[2022-05-21] MEDS ORDERED: Magnesium 2 GM/50 ML(in water) 2 GM in Premix Bag 1 BAG IVPB SCH (12:45)
[2022-05-21] MEDS ORDERED: Furosemide 40 MG/4 ML VIAL SLOW IVP SCH (13:08)
[2022-05-21] MEDS ORDERED: Insulin Glargine 30 UNITS/0.3 ML VIAL SC SCH (13:16)
[2022-05-21] MEDS ORDERED: Vancomycin 1 GM in Premix Bag 1 BAG IVPB SCH (14:00)
[2022-05-21] MEDS: Ipratropium/Albuterol 3 ML NEB NEB SCH ×2 (14:37→18:41)
[2022-05-21] MEDS: HumaLOG 300 UNITS/3 ML VIAL SC PRN ×2 (18:10→20:25)
[2022-05-21] MEDS: D5 1/2 NS w/20 mEq KCL 1,000 ML IV SCH (20:22)
[2022-05-22 03:58] LABS: #Eosinphils 0.1 thou/uL (0.0-0.7); #Lymphocytes 3.5 thou/uL (1.20-3.40); #Monocytes 0.9 thou/uL (0.11-0.59); #Neutrophils 10.1 thou/uL (1.40-6.50); %Basophils 0.3 % (0.0-1.0); %Eosinophils 0.9 % (0.0-10.0); %Lymphocytes 23.9 % (21.0-51.0); %Monocytes 6.2 % (0.0-10.0); %Neutrophils 68.6 % (42.0-75.0); Hemoglobin 13.5 g/dL (14.0-18.0); Mean Corpuscular HGB CONC 33.4 g/dL (32.0-36.0); Mean Corpuscular Hemoglobin 27.9 pg (27.0-31.0); Mean Corpuscular Volume 83.5 fl (78.0-98.0); Mean Platelet Volume 9.4 fL (7.4-10.4); Platelet Count 219 10x3/uL (130-400); RBC Distribution Width 14.8 % (11.5-14.5); Red Blood Cell (RBC) Count 4.84 mill/uL (4.70-6.10); White Blood Cell (WBC) Count 14.8 10x3/uL (4.8-10.8)
[2022-05-22 04:23] LABS: Phosphorus 2.4 mg/dL (2.3-4.7)
[2022-05-22 04:25] LABS: Anion Gap 14 mmol/L (10-20); BUN (Urea Nitrogen) 12 mg/dL (8.4-25.7); Calc. Creatinine Clearance 56 mL/min (70-130); Calcium 8.6 mg/dL (7.8-10.44); Carbon Dioxide 16 mmol/L (23-31); Chloride 110 mmol/L (98-107); Estimated GFR 77; Glucose 186 mg/dL (80-115); Magnesium 1.9 mg/dL (1.6-2.6); Potassium 3.6 mmol/L (3.5-5.1); Sodium 136 mmol/L (136-145)
[2022-05-22] MEDS: Ipratropium/Albuterol 3 ML NEB NEB SCH ×4 (06:35→19:28)
[2022-05-22] MEDS ORDERED: Magnesium 2 GM/50 ML(in water) 2 GM in Premix Bag 1 BAG IVPB SCH (08:00)
[2022-05-22] MEDS: Insulin Glargine 30 UNITS/0.3 ML VIAL SC SCH (08:52)
[2022-05-22] MEDS: Cefepime 1 GM in Sodium Chloride 0.9% 100 ML IVPB SCH ×2 (08:52→20:59)
[2022-05-22] MEDS ORDERED: Insulin Glargine 30 UNITS/0.3 ML VIAL SC SCH (09:00)
[2022-05-22] MEDS: HumaLOG 300 UNITS/3 ML VIAL SC PRN ×2 (11:40→17:36)
[2022-05-22 13:04] LABS: Vancomycin, Trough 9.4 ug/mL
[2022-05-22] MEDS: Vancomycin 1.5 GRAM/300 ML BAG 1.5 GM in Premix Bag 1 BAG IVPB SCH (15:28)
[2022-05-22] MEDS: D5 1/2 NS w/20 mEq KCL 1,000 ML IV SCH (15:28)
[2022-05-22] MEDS ORDERED: Sodium Chloride 0.9% 1,000 ML IV SCH (16:15)
[2022-05-23 03:21] VITALS: BMI 18.3
[2022-05-23] MEDS: HumaLOG 300 UNITS/3 ML VIAL SC PRN ×4 (05:08→21:21)
[2022-05-23 06:21] LABS: #Basophils 0.1 thou/uL (0.0-0.2); #Eosinphils 0.2 thou/uL (0.0-0.7); #Lymphocytes 2.7 thou/uL (1.20-3.40); #Monocytes 0.6 thou/uL (0.11-0.59); #Neutrophils 6.1 thou/uL (1.40-6.50); %Basophils 0.5 % (0.0-1.0); %Lymphocytes 27.9 % (21.0-51.0); %Monocytes 5.8 % (0.0-10.0); %Neutrophils 63.7 % (42.0-75.0); Hemoglobin 12.7 g/dL (14.0-18.0); Mean Corpuscular HGB CONC 33.3 g/dL (32.0-36.0); Mean Corpuscular Hemoglobin 27.9 pg (27.0-31.0); Mean Corpuscular Volume 83.8 fl (78.0-98.0); Mean Platelet Volume 8.5 fL (7.4-10.4); Platelet Count 232 10x3/uL (130-400); RBC Distribution Width 14.5 % (11.5-14.5); Red Blood Cell (RBC) Count 4.55 mill/uL (4.70-6.10); White Blood Cell (WBC) Count 9.6 10x3/uL (4.8-10.8)
[2022-05-23 06:41] LABS: Anion Gap 15 mmol/L (10-20); BUN (Urea Nitrogen) 11 mg/dL (8.4-25.7); Calc. Creatinine Clearance 56 mL/min (70-130); Calcium 8.7 mg/dL (7.8-10.44); Carbon Dioxide 19 mmol/L (23-31); Chloride 107 mmol/L (98-107); Estimated GFR 78; Glucose 163 mg/dL (80-115); Potassium 3.5 mmol/L (3.5-5.1); Sodium 137 mmol/L (136-145)
[2022-05-23] MEDS: Ipratropium/Albuterol 3 ML NEB NEB SCH ×4 (07:30→18:29)
[2022-05-23] MEDS ORDERED: Potassium Chloride 20 MEQ TAB PO SCH (08:00)
[2022-05-23] MEDS ORDERED: FLU VACC QS2022-23(65YR UP)/PF 240 MCG/0.7 ML SYRINGE IM ONE (09:00)
[2022-05-23] MEDS: Insulin Glargine 30 UNITS/0.3 ML VIAL SC SCH (09:07)
[2022-05-23] MEDS: Cefepime 1 GM in Sodium Chloride 0.9% 100 ML IVPB SCH ×2 (09:09→21:19)
[2022-05-23] MEDS: Vancomycin 1.5 GRAM/300 ML BAG 1.5 GM in Premix Bag 1 BAG IVPB SCH (14:51)
[2022-05-23] MEDS ORDERED: OLANZapine 5 MG TAB PO SCH (23:15)
[2022-05-23] MEDS ORDERED: Haloperidol Lactate 5 MG/ML VIAL SLOW IVP SCH ×2 (23:45→23:56)
[2022-05-24] MEDS: HumaLOG 300 UNITS/3 ML VIAL SC PRN ×2 (06:11→12:22)
[2022-05-24 06:36] LABS: Anion Gap 14 mmol/L (10-20); BUN (Urea Nitrogen) 10 mg/dL (8.4-25.7); Calc. Creatinine Clearance 62 mL/min (70-130); Calcium 8.9 mg/dL (7.8-10.44); Carbon Dioxide 19 mmol/L (23-31); Chloride 108 mmol/L (98-107); Estimated GFR 88; Glucose 236 mg/dL (80-115); Potassium 3.9 mmol/L (3.5-5.1); Sodium 137 mmol/L (136-145)
[2022-05-24] MEDS: Ipratropium/Albuterol 3 ML NEB NEB SCH ×2 (07:56→10:51)
[2022-05-24] MEDS: Insulin Glargine 30 UNITS/0.3 ML VIAL SC SCH (08:22)
[2022-05-24] MEDS: Cefepime 1 GM in Sodium Chloride 0.9% 100 ML IVPB SCH (08:22)
[2022-05-24 08:59] VITALS: TEMP 97.9
[2022-05-24] MEDS ORDERED: Terbinafine 250 MG TAB PO SCH (09:00)
[2022-05-24 13:01] VITALS: BP 135/85
[2022-05-24 13:16] LABS: Vancomycin, Trough 16.6 ug/mL
[2022-05-24] MEDS ORDERED: Ciprofloxacin 500 MG TAB PO SCH (20:00)
== END 2022-05-24 15:15 | DRG 698 ==
LOC: ERS 14:22 → ERHOLD 15:41 → IMCU/EMU 20:20 → SURG A 05-23 00:23
PROVIDERS: ADMIT Internal Medicine; ATTEND Internal Medicine
DX: T83.518A Infection and inflammatory reaction due to other urinary catheter, initial encounter (principal); A41.9 Sepsis, unspecified organism; E11.10 Type 2 diabetes mellitus with ketoacidosis without coma; G93.41 Metabolic encephalopathy; I21.A1 Myocardial infarction type 2; R65.20 Severe sepsis without septic shock; N39.0 Urinary tract infection, site not specified; N17.9 Acute kidney failure, unspecified; Z20.822 Contact with and (suspected) exposure to COVID-19; I10 Essential (primary) hypertension; J44.9 Chronic obstructive pulmonary disease, unspecified; N40.0 Benign prostatic hyperplasia without lower urinary tract symptoms; E11.22 Type 2 diabetes mellitus with diabetic chronic kidney disease; N18.2 Chronic kidney disease, stage 2 (mild); Y84.6 Urinary catheterization as the cause of abnormal reaction of the patient, or of later complication, without mention of misadventure at the time of the procedure; B35.1 Tinea unguium; E11.42 Type 2 diabetes mellitus with diabetic polyneuropathy; Z88.6 Allergy status to analgesic agent; Z87.891 Personal history of nicotine dependence; Z91.14 Patient's other noncompliance with medication regimen
CPT/HCPCS: 36415; 36416; 70450; 70496; 70498; 70551; 71045; 74230; 80048; 80053; 80202; 81003; 81015; 82010; 82553; 82805; 83605; 83690; 83735; 83880; 84100; 84443; 84484; 85025; 85610; 86850; 86900; 86901; 87040; 87077; 87086; 87149; 87186; 93005; 94640; 96361; 96365; 96375; 97139; J0692; J1630; J1650; J1815; J1940; J3370; J3370-JW; J3475; J3480; J3490; J7050; J7620; Q9967; U0002

== ENCOUNTER 2022-11-04 18:10 | Inpatient (IN) | payer OTHER, MEDICAID ==
[2022-11-04 18:57] LABS: Bilirubin Moderate (Negative); Blood, Urine Large (Negative); Glucose, Urine (Dipstick) Negative (Negative); Ketone, Urine Trace mg/dL (Negative); Leukocyte Large (Negative); Nitrite Positive (Negative); Protein, Urine (Dipstick) > or equal to 300 mg/dL (Neg-Trace); Specific Gravity, Urine 1.015 (1.005-1.030); Urobilinogen 0.2 mg/dL (Less than 2); pH, Urine 8.5 (5.0-9.0)
[2022-11-04 19:05] LABS: Clarity Cloudy (Clear)
[2022-11-04 19:12] LABS: CAUTI Indications for Culture Dysuria,urgency,freq; RBC/HPF Greater than 50 HPF (0-3); WBC/HPF Greater Than 50 HPF (0-3)
[2022-11-04 19:14] LABS: Bacteria/HPF 4+ HPF (None Seen); Squamous Epithelial None Seen HPF (0-3); Yeast-Budding 1+ HPF (None Seen); Yeast-Hyphae 1+ HPF (None Seen)
[2022-11-04 19:17] LABS: Urine Culture Reflex Yes Yes
[2022-11-04 19:20] LABS: Hemoglobin 12.3 g/dL (14.0-18.0); Mean Corpuscular Hemoglobin 27.5 pg (27.0-31.0); Mean Platelet Volume 10.3 fL (7.4-10.4); Platelet Count 276 10x3/uL (130-400); RBC Distribution Width 13.6 % (11.5-14.5); Red Blood Cell (RBC) Count 4.47 mill/uL (4.70-6.10); White Blood Cell (WBC) Count 19.1 10x3/uL (4.8-10.8)
[2022-11-04] MEDS ORDERED: cefTRIAXone (ROCEPHIN) 2 GM VIAL ONE (19:22)
[2022-11-04] MEDS ORDERED: fentaNYL 50 mcg/mL 1 mL Vial ONE (19:22)
[2022-11-04 19:24] LABS: Delete Auto Diff?? YES; Manual Diff?? YES
[2022-11-04 19:33] LABS: INR-International Normal Ratio 1.2; Prothrombin Time 15.3 sec (12.0-14.7)
[2022-11-04 19:42] LABS: ALT (SGPT) Less than 7 U/L (8-55); AST (SGOT) 9 U/L (5-34); Albumin 2.8 g/dL (3.4-4.8); Alkaline Phosphatase 91 U/L (40-110); Anion Gap 24 mmol/L (10-20); BUN (Urea Nitrogen) 54 mg/dL (8.4-25.7); Bilirubin, Total 0.3 mg/dL (0.2-1.2); Calc. Creatinine Clearance 0 mL/min (70-130); Calcium 8.3 mg/dL (7.8-10.44); Carbon Dioxide 14 mmol/L (23-31); Chloride 96 mmol/L (98-107); Estimated GFR 12; Globulin 3.8 g/dL (2.4-3.5); Potassium 4.1 mmol/L (3.5-5.1); Protein, Total 6.6 g/dL (5.8-8.1); Sodium 130 mmol/L (136-145)
[2022-11-04 19:44] LABS: Band 52 % (5-11); Burr Cells MODERATE= 6-15 cells HPF (0-1); CellaVision Operator ID LAB.MJL; Lymphocytes 2 % (21-51); Metamyelocyte 2 % (0-0); Neutrophil 44 % (42-75); Ovalocytes SLIGHT = 2-5 cells HPF (0-1); Platelet Adequacy Comment Platelets Normal; Poikilocytosis SLIGHT = 6-15 cells HPF (0-5); Polychromasia SLIGHT = 2-3 cells HPF (0-2); Total Cell Count 102; Vacuoles SLIGHT
[2022-11-04 19:45] LABS: Glucose 321 mg/dL (80-115)
[2022-11-04] MEDS ORDERED: Vancomycin 1 GM/200 ML (FROZEN) BAG ONE (20:35)
[2022-11-04] MEDS ORDERED: metroNIDAZOLE 500 MG/100 ML BAG ONE (22:15)
[2022-11-04] MEDS ORDERED: Ondansetron PF 4 MG/2 ML Vial IVP PRN (22:32)
[2022-11-04] MEDS ORDERED: Glucagon 1 MG/ML KIT IM PRN (22:36)
[2022-11-04] MEDS ORDERED: Dextrose 5% in Water 1,000 ML IV PRN (22:36)
[2022-11-04] MEDS ORDERED: Dextrose 50% Abboject 50 ML SYRINGE SLOW IVP PRN (22:36)
[2022-11-04] MEDS ORDERED: Ketamine 50 MG/ML (10ML VIAL) ONE (22:37)
[2022-11-04] MEDS ORDERED: Norepinephrine 4 MG/4 ML VIAL ONE (22:37)
[2022-11-04] MEDS ORDERED: Albuterol HFA (OR) 200 PUFF INH ONE (22:37)
[2022-11-04] MEDS ORDERED: Albumin 5% 500 ML ONE (22:37)
[2022-11-04] MEDS ORDERED: Vasopressin 20 UNITS/ML VIAL ONE (22:37)
[2022-11-04] MEDS ORDERED: fentaNYL PF 100 MCG/2 ML SYRINGE ONE (22:38)
[2022-11-04] MEDS ORDERED: Phenylephrine 10 MG/ML VIAL ONE (22:51)
[2022-11-04] MEDS ORDERED: Midazolam HCl 2 mg/2 ml Vial ONE (23:13)
[2022-11-04 23:23] LABS: Lactic Acid 2.4 mmol/L (0.5-2.2)
[2022-11-04] MEDS ORDERED: Sodium Bicarb 50 MEQ/50 ML VIAL ONE (23:26)
[2022-11-04] MEDS ORDERED: PHENYLEPHRINE-NS 100 MCG/ML 10 ML SYRINGE ONE (23:34)
[2022-11-04] MEDS ORDERED: Rocuronium Bromide 10 MG/ML (10ML VIAL) ONE (23:34)
[2022-11-05] MEDS ORDERED: Insulin Regular 300 UNITS/3 ML VIAL ONE (00:28)
[2022-11-05] MEDS ORDERED: NOREPINEPHRINE 8 MG/250 ML-D5W 250 ML IVPB SCH (02:00)
[2022-11-05] MEDS ORDERED: Fentanyl BOLUS 250 ML IVPB PRN (02:00)
[2022-11-05] MEDS ORDERED: Morphine 2 MG/ML VIAL SLOW IVP PRN (02:00)
[2022-11-05] MEDS ORDERED: Ventilator Sedation Protocol 1 EACH FS SCH (02:00)
[2022-11-05] MEDS ORDERED: DISCONTINUE PREVIOUS NARCOTIC PAIN MEDICATIONS AND BENZODIAZEPINES FS SCH (02:00)
[2022-11-05] MEDS ORDERED: Propofol BOLUS 1,000 MG/100 ML VIAL IV PRN (02:00)
[2022-11-05] MEDS ORDERED: Lorazepam 2 MG/ML VIAL SLOW IVP PRN (02:00)
[2022-11-05] MEDS ORDERED: Fentanyl CADD 100 ML IV SCH (02:00)
[2022-11-05] MEDS ORDERED: Propofol 1,000 MG/100 ML VIAL IV PRN (02:00)
[2022-11-05 02:22] LABS: Actual Bicarbonate (HCO3a) 15.9 mEq/L (22-28); Base Excess (BEa) -9.7 mEq/L (-2.0 to +3.0); CO2 Tension 33.5 mmHg (35.0-45.0); Calcium, Ionized (arterial) 1.01 mmol/L (1.12-1.30); Carboxyhemoglobin (COHb) 0.3 gm% (0.0-3.0); Hematocrit-ABG 31 % (42.0-52.0); Hemoglobin (Hb) 10.7 g/dL (14.0-18.0); O2 Tension (PaO2), arterial 274.1 mmHg (> 80.0); pH, Arterial 7.293 (7.35-7.45)
[2022-11-05] MEDS ORDERED: Potassium Chloride 20 MEQ in Premix Bag 1 BAG IVPB SCH ×2 (02:30→06:30)
[2022-11-05] MEDS ORDERED: Ipratropium/Albuterol 3 ML NEB NEB PRN (02:39)
[2022-11-05] MEDS: Sodium Chloride 0.9% 1,000 ML IV SCH ×4 (02:53→16:54)
[2022-11-05] MEDS: metroNIDAZOLE 500 MG in Premix Bag 1 BAG IVPB SCH ×4 (05:13→21:01)
[2022-11-05 05:43] LABS: #Monocytes 0.4 thou/uL (0.11-0.59); #Neutrophils 17.2 thou/uL (1.40-6.50); %Basophils 0.2 % (0.0-1.0); %Monocytes 2.1 % (0.0-10.0); %Neutrophils 91.3 % (42.0-75.0); Hemoglobin 10.9 g/dL (14.0-18.0); Mean Corpuscular HGB CONC 33.1 g/dL (32.0-36.0); Mean Corpuscular Hemoglobin 27.3 pg (27.0-31.0); Mean Corpuscular Volume 82.5 fl (78.0-98.0); Platelet Count 222 10x3/uL (130-400); RBC Distribution Width 13.9 % (11.5-14.5); Red Blood Cell (RBC) Count 3.99 mill/uL (4.70-6.10); White Blood Cell (WBC) Count 18.8 10x3/uL (4.8-10.8)
[2022-11-05] MEDS: HumaLOG 300 UNITS/3 ML VIAL SC PRN ×2 (05:46→12:24)
[2022-11-05 06:01] LABS: Manual Diff?? YES
[2022-11-05 06:03] LABS: Lactic Acid 1.3 mmol/L (0.5-2.2)
[2022-11-05 06:06] LABS: Phosphorus 3.8 mg/dL (2.3-4.7)
[2022-11-05 06:08] LABS: ALT (SGPT) Less than 7 U/L (8-55); AST (SGOT) 10 U/L (5-34); Albumin 2.9 g/dL (3.4-4.8); Alkaline Phosphatase 63 U/L (40-110); Anion Gap 20 mmol/L (10-20); BUN (Urea Nitrogen) 43 mg/dL (8.4-25.7); Bilirubin, Total 0.2 mg/dL (0.2-1.2); Calc. Creatinine Clearance 18 mL/min (70-130); Calcium 7.6 mg/dL (7.8-10.44); Carbon Dioxide 14 mmol/L (23-31); Chloride 108 mmol/L (98-107); Estimated GFR 21; Globulin 2.8 g/dL (2.4-3.5); Glucose 256 mg/dL (80-115); Magnesium 1.3 mg/dL (1.6-2.6); Potassium 3.4 mmol/L (3.5-5.1); Protein, Total 5.7 g/dL (5.8-8.1); Sodium 139 mmol/L (136-145)
[2022-11-05] MEDS ORDERED: Magnesium 2 GM/50 ML(in water) 2 GM in Premix Bag 1 BAG IVPB SCH (06:30)
[2022-11-05] MEDS ORDERED: Sodium Bicarb 50 MEQ/50 ML VIAL IVP SCH (06:30)
[2022-11-05 07:50] LABS: Band 58 % (5-11); Burr Cells MODERATE= 6-15 cells HPF (0-1); CellaVision Operator ID LAB.GE; Lymphocytes 3 % (21-51); Metamyelocyte 7 % (0-0); Monocytes 1 % (0-10); Myelocyte 2 % (0-0); Neutrophil 30 % (42-75); Platelet Adequacy Comment Platelets Normal; Polychromasia SLIGHT = 2-3 cells HPF (0-2); Total Cell Count 104
[2022-11-05] MEDS ORDERED: Famotidine/PF 20 mg/2ml Vial SLOW IVP SCH (09:00)
[2022-11-05] MEDS ORDERED: Cefepime 1 GM in Sodium Chloride 0.9% 100 ML IVPB SCH (09:00)
[2022-11-05 13:30] LABS: Actual Bicarbonate (HCO3a) 19.1 mEq/L (22-28); Base Excess (BEa) -5.4 mEq/L (-2.0 to +3.0); CO2 Tension 33.9 mmHg (35.0-45.0); Hematocrit-ABG 34 % (42.0-52.0); Hemoglobin (Hb) 11.7 g/dL (14.0-18.0); O2 Tension (PaO2), arterial 99.1 mmHg (> 80.0); pH, Arterial 7.368 (7.35-7.45)
[2022-11-05 13:31] LABS: Calcium, Ionized (arterial) 1.04 mmol/L (1.12-1.30); Carboxyhemoglobin (COHb) 0.2 gm% (0.0-3.0); Potassium - ABG Lab 3.12 mmol/L (3.70-5.30)
[2022-11-05 13:33] LABS: ALV-art Gradient 108.075 mmHg (0-20); Puncture Site Arterial Line
[2022-11-05] MEDS ORDERED: Lactated Ringer's 1,000 ML IV SCH (17:00)
[2022-11-06] MEDS ORDERED: Sodium Chloride 0.9% 500 ML IV SCH (03:00)
[2022-11-06] MEDS: Sodium Chloride 0.9% 1,000 ML IV SCH (03:01)
[2022-11-06] MEDS: metroNIDAZOLE 500 MG in Premix Bag 1 BAG IVPB SCH ×4 (03:29→21:00)
[2022-11-06 04:18] LABS: #Monocytes 0.2 thou/uL (0.11-0.59); #Neutrophils 10.9 thou/uL (1.40-6.50); %Basophils 0.1 % (0.0-1.0); %Lymphocytes 5.8 % (21.0-51.0); %Monocytes 1.8 % (0.0-10.0); %Neutrophils 91.5 % (42.0-75.0); Mean Corpuscular HGB CONC 33.3 g/dL (32.0-36.0); Mean Corpuscular Hemoglobin 27.2 pg (27.0-31.0); Mean Corpuscular Volume 81.6 fl (78.0-98.0); Mean Platelet Volume 10.5 fL (7.4-10.4); Platelet Count 126 10x3/uL (130-400); RBC Distribution Width 14.3 % (11.5-14.5); Red Blood Cell (RBC) Count 3.31 mill/uL (4.70-6.10)
[2022-11-06 05:41] LABS: Lactic Acid 0.8 mmol/L (0.5-2.2)
[2022-11-06 08:32] LABS: ALT (SGPT) Less than 7 U/L (8-55); AST (SGOT) 7 U/L (5-34); Albumin 2.2 g/dL (3.4-4.8); Alkaline Phosphatase 79 U/L (40-110); Anion Gap 15 mmol/L (10-20); BUN (Urea Nitrogen) 33 mg/dL (8.4-25.7); Bilirubin, Total Less than 0.2 mg/dL (0.2-1.2); Calc. Creatinine Clearance 37 mL/min (70-130); Calcium 7.7 mg/dL (7.8-10.44); Carbon Dioxide 18 mmol/L (23-31); Chloride 114 mmol/L (98-107); Estimated GFR 52; Globulin 2.7 g/dL (2.4-3.5); Glucose 167 mg/dL (80-115); Magnesium 1.6 mg/dL (1.6-2.6); Potassium 2.9 mmol/L (3.5-5.1); Protein, Total 4.9 g/dL (5.8-8.1); Sodium 144 mmol/L (136-145)
[2022-11-06] MEDS ORDERED: DC Sedation Protocol FS ONE (08:52)
[2022-11-06] MEDS ORDERED: Electrolyte Replacement Protocol 1 EACH FS SCH (09:00)
[2022-11-06] MEDS ORDERED: Cefepime 1 GM in Sodium Chloride 0.9% 100 ML IVPB SCH (09:00)
[2022-11-06] MEDS ORDERED: Electrolyte Replacement Protocol FS PRN (09:15)
[2022-11-06] MEDS: Potassium Chloride 20 MEQ in Premix Bag 1 BAG IVPB SCH ×4 (09:24→14:44)
[2022-11-06] MEDS: Lactated Ringer's 1,000 ML IV SCH ×2 (09:24→23:21)
[2022-11-06] MEDS ORDERED: Magnesium 2 GM/50 ML(in water) 2 GM in Premix Bag 1 BAG IVPB SCH (10:00)
[2022-11-06 12:35] LABS: Actual Bicarbonate (HCO3a) 15.1 mEq/L (22-28); Analyzer IN Cardio OR; Base Excess (BEa) -10.3 mEq/L (-2.0 to +3.0); Calcium, Ionized (arterial) 1.03 mmol/L (1.12-1.30); Carboxyhemoglobin (COHb) 0.3 gm% (0.0-3.0); Hematocrit-ABG 33 % (42.0-52.0); Hemoglobin (Hb) 11.2 g/dL (14.0-18.0); Potassium - ABG Lab 3.16 mmol/L (3.70-5.30); pH, Arterial 7.293 (7.35-7.45)
[2022-11-06 12:36] LABS: Puncture Site Arterial Line
[2022-11-06 12:36] LABS: Analyzer IN Cardio OR; Base Excess (BEa) -14.2 mEq/L (-2.0 to +3.0); CO2 Tension 35.8 mmHg (35.0-45.0); Calcium, Ionized (arterial) 1.05 mmol/L (1.12-1.30); Carboxyhemoglobin (COHb) 0.1 gm% (0.0-3.0); Hematocrit-ABG 33 % (42.0-52.0); Hemoglobin (Hb) 11.1 g/dL (14.0-18.0); O2 Tension (PaO2), arterial 439.6 mmHg (> 80.0)
[2022-11-06 12:37] LABS: Actual Bicarbonate (HCO3a) 13.2 mEq/L (22-28); pH, Arterial 7.183 (7.35-7.45)
[2022-11-06 12:38] LABS: Puncture Site Arterial Line
[2022-11-06] MEDS ORDERED: HYDROcodone/Acetaminophen 7.5/325 mg Tablet PO PRN (19:15)
[2022-11-06] MEDS: Cefepime 1 GM in Sodium Chloride 0.9% 100 ML IVPB SCH (19:33)
[2022-11-06 21:21] LABS: Potassium 3.8 mmol/L (3.5-5.1)
[2022-11-06] MEDS: Morphine 2 MG/ML VIAL SLOW IVP PRN (21:41)
[2022-11-06] MEDS: Scopolamine 1.5 mg/72 hour Patch TD SCH (22:54)
[2022-11-07] MEDS: Morphine 2 MG/ML VIAL SLOW IVP PRN ×2 (01:43→05:43)
[2022-11-07] MEDS: metroNIDAZOLE 500 MG in Premix Bag 1 BAG IVPB SCH ×4 (03:01→21:57)
[2022-11-07 04:31] LABS: #Monocytes 0.3 thou/uL (0.11-0.59); #Neutrophils 13.7 thou/uL (1.40-6.50); %Basophils 0.2 % (0.0-1.0); %Eosinophils 0.1 % (0.0-10.0); %Lymphocytes 7.4 % (21.0-51.0); %Monocytes 1.8 % (0.0-10.0); %Neutrophils 89.2 % (42.0-75.0); Hemoglobin 9.8 g/dL (14.0-18.0); Mean Corpuscular Hemoglobin 27.2 pg (27.0-31.0); Mean Corpuscular Volume 82.5 fl (78.0-98.0); Mean Platelet Volume 10.3 fL (7.4-10.4); Platelet Count 123 10x3/uL (130-400); White Blood Cell (WBC) Count 15.4 10x3/uL (4.8-10.8)
[2022-11-07 04:37] LABS: Manual Diff?? YES
[2022-11-07 04:41] LABS: Anion Gap 17 mmol/L (10-20); BUN (Urea Nitrogen) 19 mg/dL (8.4-25.7); Calc. Creatinine Clearance 63 mL/min (70-130); Carbon Dioxide 19 mmol/L (23-31); Chloride 114 mmol/L (98-107); Estimated GFR 94; Glucose 138 mg/dL (80-115); Magnesium 1.6 mg/dL (1.6-2.6); Potassium 3.5 mmol/L (3.5-5.1); Sodium 146 mmol/L (136-145)
[2022-11-07 05:09] LABS: Anisocytosis SLIGHT = 6-15 cells HPF (0-5); Band 11 % (5-11); Burr Cells MODERATE= 6-15 cells HPF (0-1); Lymphocytes 5 % (21-51); Monocytes 1 % (0-10); Neutrophil 83 % (42-75); Platelet Adequacy Comment Platelets Decreased; Poikilocytosis SLIGHT = 6-15 cells HPF (0-5); Polychromasia SLIGHT = 2-3 cells HPF (0-2); Total Cell Count 102
[2022-11-07] MEDS: Potassium Chloride 20 MEQ in Premix Bag 1 BAG IVPB SCH ×2 (07:51→09:14)
[2022-11-07] MEDS: Cefepime 1 GM in Sodium Chloride 0.9% 100 ML IVPB SCH ×2 (07:51→21:40)
[2022-11-07] MEDS ORDERED: Magnesium 2 GM/50 ML(in water) 2 GM in Premix Bag 1 BAG IVPB SCH (08:00)
[2022-11-07] MEDS: Lactated Ringer's 1,000 ML IV SCH (12:51)
[2022-11-07] MEDS: Famotidine/PF 20 mg/2ml Vial SLOW IVP SCH (21:41)
[2022-11-08] MEDS: Lactated Ringer's 1,000 ML IV SCH ×3 (01:14→21:11)
[2022-11-08] MEDS: metroNIDAZOLE 500 MG in Premix Bag 1 BAG IVPB SCH ×4 (04:38→21:12)
[2022-11-08 05:03] LABS: Hemoglobin 9.9 g/dL (14.0-18.0); Mean Corpuscular HGB CONC 32.9 g/dL (32.0-36.0); Mean Corpuscular Volume 82.2 fl (78.0-98.0); Mean Platelet Volume 10.6 fL (7.4-10.4); Platelet Count 120 10x3/uL (130-400); RBC Distribution Width 15.5 % (11.5-14.5); Red Blood Cell (RBC) Count 3.66 mill/uL (4.70-6.10); White Blood Cell (WBC) Count 18.2 10x3/uL (4.8-10.8)
[2022-11-08 05:16] LABS: Delete Auto Diff?? YES; Manual Diff?? YES
[2022-11-08 05:28] LABS: Anion Gap 20 mmol/L (10-20); BUN (Urea Nitrogen) 17 mg/dL (8.4-25.7); Calc. Creatinine Clearance 58 mL/min (70-130); Carbon Dioxide 15 mmol/L (23-31); Chloride 112 mmol/L (98-107); Estimated GFR 87; Glucose 241 mg/dL (80-115); Magnesium 1.3 mg/dL (1.6-2.6); Potassium 3.2 mmol/L (3.5-5.1); Sodium 144 mmol/L (136-145)
[2022-11-08] MEDS: HumaLOG 300 UNITS/3 ML VIAL SC PRN ×2 (05:49→10:26)
[2022-11-08 05:51] LABS: Band 2 % (5-11); Burr Cells MODERATE= 6-15 cells HPF (0-1); CellaVision Operator ID lab.abc; Lymphocytes 7 % (21-51); Monocytes 2 % (0-10); Myelocyte 1 % (0-0); Neutrophil 88 % (42-75); Platelet Adequacy Comment Platelets Decreased; Total Cell Count 101
[2022-11-08] MEDS ORDERED: Magnesium 2 GM/50 ML(in water) 2 GM in Premix Bag 1 BAG IVPB SCH (06:30)
[2022-11-08] MEDS ORDERED: Potassium Chloride 20 MEQ in Premix Bag 1 BAG IVPB SCH (06:30)
[2022-11-08] MEDS: Morphine 2 MG/ML VIAL SLOW IVP PRN (07:44)
[2022-11-08] MEDS: Potassium Chloride 20 MEQ in Premix Bag 1 BAG IVPB SCH ×2 (07:44→09:01)
[2022-11-08] MEDS ORDERED: Magnesium Sulfate In Water 4 GM in Premix Bag 1 BAG IVPB SCH (08:00)
[2022-11-08 08:04] VITALS: BMI 18.3
[2022-11-08] MEDS: Cefepime 1 GM in Sodium Chloride 0.9% 100 ML IVPB SCH ×2 (08:33→21:11)
[2022-11-08 11:09] LABS: Potassium - ABG Lab 2.68 mmol/L (3.70-5.30)
[2022-11-08] MEDS: Famotidine/PF 20 mg/2ml Vial SLOW IVP SCH (21:11)
[2022-11-09 05:13] LABS: #Basophils 0.1 thou/uL (0.0-0.2); #Monocytes 0.7 thou/uL (0.11-0.59); %Basophils 0.4 % (0.0-1.0); %Eosinophils 0.1 % (0.0-10.0); %Lymphocytes 6.6 % (21.0-51.0); %Monocytes 3.4 % (0.0-10.0); %Neutrophils 85.3 % (42.0-75.0); Hemoglobin 9.9 g/dL (14.0-18.0); Mean Corpuscular HGB CONC 31.7 g/dL (32.0-36.0); Mean Corpuscular Hemoglobin 26.6 pg (27.0-31.0); Mean Corpuscular Volume 83.9 fl (78.0-98.0); Mean Platelet Volume 10.5 fL (7.4-10.4); Platelet Count 128 10x3/uL (130-400); Red Blood Cell (RBC) Count 3.72 mill/uL (4.70-6.10)
[2022-11-09] MEDS: metroNIDAZOLE 500 MG in Premix Bag 1 BAG IVPB SCH ×2 (05:26→09:38)
[2022-11-09 05:38] LABS: Anion Gap 25 mmol/L (10-20); BUN (Urea Nitrogen) 19 mg/dL (8.4-25.7); Calc. Creatinine Clearance 58 mL/min (70-130); Calcium 8.2 mg/dL (7.8-10.44); Carbon Dioxide 15 mmol/L (23-31); Chloride 113 mmol/L (98-107); Estimated GFR 87; Glucose 255 mg/dL (80-115); Potassium 3.3 mmol/L (3.5-5.1); Sodium 150 mmol/L (136-145)
[2022-11-09] MEDS: Lactated Ringer's 1,000 ML IV SCH ×2 (09:38→17:32)
[2022-11-09] MEDS: Potassium Chloride 20 MEQ in Premix Bag 1 BAG IVPB SCH ×2 (09:39→12:07)
[2022-11-09] MEDS: Cefepime 1 GM in Sodium Chloride 0.9% 100 ML IVPB SCH ×2 (09:39→21:31)
[2022-11-09] MEDS ORDERED: Magnesium 2 GM/50 ML(in water) 2 GM in Premix Bag 1 BAG IVPB SCH (16:00)
[2022-11-09] MEDS: Famotidine/PF 20 mg/2ml Vial SLOW IVP SCH (21:32)
[2022-11-09] MEDS: Scopolamine 1.5 mg/72 hour Patch TD SCH (21:32)
[2022-11-10] MEDS: Lactated Ringer's 1,000 ML IV SCH (04:48)
[2022-11-10 05:01] LABS: Hemoglobin 9.3 g/dL (14.0-18.0); Mean Corpuscular Hemoglobin 27.3 pg (27.0-31.0); Mean Platelet Volume 10.4 fL (7.4-10.4); Platelet Count 126 10x3/uL (130-400); RBC Distribution Width 16.5 % (11.5-14.5); Red Blood Cell (RBC) Count 3.41 mill/uL (4.70-6.10); White Blood Cell (WBC) Count 19.7 10x3/uL (4.8-10.8)
[2022-11-10 05:12] LABS: Delete Auto Diff?? YES; Manual Diff?? YES
[2022-11-10 05:25] LABS: Anion Gap 27 mmol/L (10-20); BUN (Urea Nitrogen) 18 mg/dL (8.4-25.7); Calc. Creatinine Clearance 68 mL/min (70-130); Calcium 8.1 mg/dL (7.8-10.44); Carbon Dioxide 13 mmol/L (23-31); Chloride 116 mmol/L (98-107); Estimated GFR 95; Glucose 227 mg/dL (80-115); Potassium 3.7 mmol/L (3.5-5.1)
[2022-11-10 05:30] LABS: Sodium 152 mmol/L (136-145)
[2022-11-10] MEDS ORDERED: Dextrose 5% in Water 1,000 ML IV SCH (06:00)
[2022-11-10] MEDS: HumaLOG 300 UNITS/3 ML VIAL SC PRN ×2 (06:11→17:48)
[2022-11-10 06:14] LABS: Band 2 % (5-11); Burr Cells MODERATE= 6-15 cells HPF (0-1); CellaVision Operator ID lab.abc; Lymphocytes 5 % (21-51); Monocytes 1 % (0-10); Myelocyte 2 % (0-0); Neutrophil 90 % (42-75); Platelet Adequacy Comment Platelets Decreased; Polychromasia SLIGHT = 2-3 cells HPF (0-2); Total Cell Count 100
[2022-11-10] MEDS: Dextrose 5% in Water 1,000 ML IV SCH ×2 (10:44→17:43)
[2022-11-10] MEDS: Cefepime 1 GM in Sodium Chloride 0.9% 100 ML IVPB SCH ×2 (10:45→22:08)
[2022-11-10 16:57] LABS: Sodium 149 mmol/L (136-145)
[2022-11-10] MEDS: Famotidine/PF 20 mg/2ml Vial SLOW IVP SCH (22:08)
[2022-11-11] MEDS: Dextrose 5% in Water 1,000 ML IV SCH (01:02)
[2022-11-11 04:34] LABS: Hemoglobin 8.9 g/dL (14.0-18.0); Mean Platelet Volume 10.6 fL (7.4-10.4); RBC Distribution Width 16.1 % (11.5-14.5); White Blood Cell (WBC) Count 15.8 10x3/uL (4.8-10.8)
[2022-11-11 04:55] LABS: Anion Gap 15 mmol/L (10-20); BUN (Urea Nitrogen) 14 mg/dL (8.4-25.7); Calc. Creatinine Clearance 80 mL/min (70-130); Calcium 7.3 mg/dL (7.8-10.44); Carbon Dioxide 18 mmol/L (23-31); Chloride 113 mmol/L (98-107); Estimated GFR 100; Glucose 319 mg/dL (80-115); Potassium 2.9 mmol/L (3.5-5.1); Sodium 143 mmol/L (136-145)
[2022-11-11 05:38] LABS: Delete Auto Diff?? YES; Manual Diff?? YES; Platelet Count 116 10x3/uL (130-400)
[2022-11-11 05:39] LABS: Mean Corpuscular Volume 79.4 fl (78.0-98.0)
[2022-11-11 07:14] LABS: Band 10 % (5-11); CellaVision Operator ID LAB.GE; Lymphocytes 1 % (21-51); Metamyelocyte 2 % (0-0); Microcytosis SLIGHT = 6-15 cells HPF (0-5); Monocytes 2 % (0-10); Myelocyte 1 % (0-0); Neutrophil 84 % (42-75); Platelet Adequacy Comment Platelets Decreased; Polychromasia SLIGHT = 2-3 cells HPF (0-2); Smudge Cells 8.2 %; Total Cell Count 98; Vacuoles SLIGHT
[2022-11-11] MEDS: Potassium Chloride 20 MEQ in Premix Bag 1 BAG IVPB SCH ×4 (07:30→12:33)
[2022-11-11] MEDS: Famotidine 20 MG TAB PO SCH ×2 (09:39→20:34)
[2022-11-11] MEDS: Cefepime 1 GM in Sodium Chloride 0.9% 100 ML IVPB SCH (09:39)
[2022-11-11] MEDS: Ascorbic Acid 500 mg Chewable Tablet PO SCH (09:39)
[2022-11-11] MEDS: Ferrous Sulfate 325 MG TAB PO SCH (09:40)
[2022-11-11] MEDS ORDERED: Lactated Ringer's 1,000 ML IV SCH (12:45)
[2022-11-11] MEDS: HumaLOG 300 UNITS/3 ML VIAL SC PRN ×2 (13:22→16:52)
[2022-11-11] MEDS: Albumin 25% 25 GM/100 ML BOT IVPB SCH (16:51)
[2022-11-11] MEDS ORDERED: cefTRIAXone\\ROCEPHIN 1 GM in Sodium Chloride 0.9% 100 ML IVPB SCH (19:00)
[2022-11-11] MEDS: cefTRIAXone\\ROCEPHIN 1 GM in Sodium Chloride 0.9% 100 ML IVPB SCH (20:33)
[2022-11-11] MEDS ORDERED: Cefepime 2 GM in Sodium Chloride 0.9% 100 ML IVPB SCH (21:00)
[2022-11-12] MEDS: Albumin 25% 25 GM/100 ML BOT IVPB SCH ×3 (00:57→12:16)
[2022-11-12] MEDS: HumaLOG 300 UNITS/3 ML VIAL SC PRN ×2 (05:31→12:45)
[2022-11-12 05:52] LABS: Hemoglobin 8.9 g/dL (14.0-18.0); Mean Corpuscular HGB CONC 33.8 g/dL (32.0-36.0); Mean Corpuscular Hemoglobin 26.6 pg (27.0-31.0); Mean Corpuscular Volume 78.5 fl (78.0-98.0); Mean Platelet Volume 10.3 fL (7.4-10.4); Platelet Count 113 10x3/uL (130-400); RBC Distribution Width 15.8 % (11.5-14.5); Red Blood Cell (RBC) Count 3.35 mill/uL (4.70-6.10); White Blood Cell (WBC) Count 18.3 10x3/uL (4.8-10.8)
[2022-11-12 06:12] LABS: ALT (SGPT) Less than 7 U/L (8-55); AST (SGOT) 8 U/L (5-34); Alkaline Phosphatase 84 U/L (40-110); Anion Gap 17 mmol/L (10-20); BUN (Urea Nitrogen) 13 mg/dL (8.4-25.7); Bilirubin, Total 0.3 mg/dL (0.2-1.2); Calc. Creatinine Clearance 84 mL/min (70-130); Calcium 7.5 mg/dL (7.8-10.44); Carbon Dioxide 19 mmol/L (23-31); Chloride 108 mmol/L (98-107); Estimated GFR 100; Globulin 2.6 g/dL (2.4-3.5); Glucose 332 mg/dL (80-115); Potassium 3.5 mmol/L (3.5-5.1); Protein, Total 5.6 g/dL (5.8-8.1); Sodium 140 mmol/L (136-145)
[2022-11-12 06:40] LABS: Delete Auto Diff?? YES; Manual Diff?? YES
[2022-11-12 07:15] LABS: Band 6 % (5-11); CellaVision Operator ID LAB.GE; Eosinophils 1 % (0-10); Lymphocytes 4 % (21-51); Metamyelocyte 1 % (0-0); Microcytosis SLIGHT = 6-15 cells HPF (0-5); Monocytes 1 % (0-10); Myelocyte 1 % (0-0); Neutrophil 85 % (42-75); Platelet Adequacy Comment Platelets Decreased; Polychromasia SLIGHT = 2-3 cells HPF (0-2); Reactive Lymphocytes 1 % (0-10); Total Cell Count 100
[2022-11-12] MEDS: Potassium Chloride 20 MEQ in Premix Bag 1 BAG IVPB SCH ×2 (09:44→12:15)
[2022-11-12] MEDS: Ferrous Sulfate 325 MG TAB PO SCH (09:44)
[2022-11-12] MEDS: Ascorbic Acid 500 mg Chewable Tablet PO SCH (09:44)
[2022-11-12] MEDS: Famotidine 20 MG TAB PO SCH ×2 (09:44→20:56)
[2022-11-12] MEDS ORDERED: Iopamidol-370 76% 500 ML MDV (1 ML CHARGE) ONE (12:39)
[2022-11-12] MEDS ORDERED: Insulin Glargine 30 UNITS/0.3 ML VIAL SC SCH (14:30)
[2022-11-12] MEDS: metroNIDAZOLE 500 MG in Premix Bag 1 BAG IVPB SCH ×2 (16:27→20:56)
[2022-11-12] MEDS: cefTRIAXone\\ROCEPHIN 1 GM in Sodium Chloride 0.9% 100 ML IVPB SCH (20:56)
[2022-11-12] MEDS: Scopolamine 1.5 mg/72 hour Patch TD SCH (22:17)
[2022-11-13 04:53] LABS: #Basophils 0.1 thou/uL (0.0-0.2); #Eosinphils 0.1 thou/uL (0.0-0.7); #Monocytes 0.5 thou/uL (0.11-0.59); #Neutrophils 16.5 thou/uL (1.40-6.50); %Basophils 0.3 % (0.0-1.0); %Eosinophils 0.7 % (0.0-10.0); %Lymphocytes 9.1 % (21.0-51.0); %Monocytes 2.4 % (0.0-10.0); %Neutrophils 86.1 % (42.0-75.0); Hemoglobin 8.8 g/dL (14.0-18.0); Mean Corpuscular HGB CONC 33.1 g/dL (32.0-36.0); Mean Corpuscular Hemoglobin 26.4 pg (27.0-31.0); Mean Corpuscular Volume 79.9 fl (78.0-98.0); Mean Platelet Volume 11.1 fL (7.4-10.4); Red Blood Cell (RBC) Count 3.33 mill/uL (4.70-6.10); White Blood Cell (WBC) Count 19.2 10x3/uL (4.8-10.8)
[2022-11-13 05:17] LABS: Platelet Count 119 10x3/uL (130-400)
[2022-11-13 05:24] LABS: ALT (SGPT) Less than 7 U/L (8-55); AST (SGOT) 8 U/L (5-34); Albumin 3.1 g/dL (3.4-4.8); Alkaline Phosphatase 66 U/L (40-110); Anion Gap 12 mmol/L (10-20); BUN (Urea Nitrogen) 11 mg/dL (8.4-25.7); Bilirubin, Total 0.4 mg/dL (0.2-1.2); Calc. Creatinine Clearance 86 mL/min (70-130); Carbon Dioxide 25 mmol/L (23-31); Chloride 107 mmol/L (98-107); Estimated GFR 101; Globulin 2.8 g/dL (2.4-3.5); Glucose 197 mg/dL (80-115); Potassium 3.2 mmol/L (3.5-5.1); Protein, Total 5.9 g/dL (5.8-8.1); Sodium 141 mmol/L (136-145)
[2022-11-13] MEDS: metroNIDAZOLE 500 MG in Premix Bag 1 BAG IVPB SCH ×3 (05:45→23:56)
[2022-11-13] MEDS: Famotidine 20 MG TAB PO SCH ×2 (09:05→22:14)
[2022-11-13] MEDS: Potassium Chloride 20 MEQ in Premix Bag 1 BAG IVPB SCH ×2 (09:05→12:03)
[2022-11-13] MEDS: Insulin Glargine 30 UNITS/0.3 ML VIAL SC SCH (09:05)
[2022-11-13] MEDS: Ferrous Sulfate 325 MG TAB PO SCH (09:05)
[2022-11-13] MEDS: Ascorbic Acid 500 mg Chewable Tablet PO SCH (09:06)
[2022-11-13] MEDS: Nystatin 500,000 UNITS/5 ML UDCUP SSW SCH ×3 (12:14→22:14)
[2022-11-13] MEDS ORDERED: Nystatin 100,000 Units/mL UDCUP SSW SCH (13:00)
[2022-11-13] MEDS ORDERED: CEFAZOLIN 2 GM in Sodium Chloride 0.9% 100 ML IVPB SCH (17:00)
[2022-11-13] MEDS: cefTRIAXone\\ROCEPHIN 1 GM in Sodium Chloride 0.9% 100 ML IVPB SCH (22:19)
[2022-11-14] MEDS: metroNIDAZOLE 500 MG in Premix Bag 1 BAG IVPB SCH (06:23)
[2022-11-14] MEDS: Ascorbic Acid 500 mg Chewable Tablet PO SCH (09:17)
[2022-11-14] MEDS: Ferrous Sulfate 325 MG TAB PO SCH (09:17)
[2022-11-14] MEDS: Famotidine 20 MG TAB PO SCH (09:17)
[2022-11-14] MEDS: Nystatin 500,000 UNITS/5 ML UDCUP SSW SCH (09:17)
[2022-11-14] MEDS: Insulin Glargine 30 UNITS/0.3 ML VIAL SC SCH (09:23)
[2022-11-14 15:48] VITALS: BP 118/58; TEMP 97.6
== END 2022-11-14 15:49 | disposition hospice, inpatient (51) | DRG 653 ==
LOC: ERS 18:10 → SDC/OP 23:29 → CCU 23:59 → 2NO 11-08 13:34
PROVIDERS: ADMIT Hospitalist; ATTEND Internal Medicine
PROC: 0TBB0ZZ Excision of Bladder, Open Approach (ICD-10-PCS; principal; 2022-11-05)
PROC: 0TQB0ZZ Repair Bladder, Open Approach (ICD-10-PCS; 2022-11-05)
PROC: 0T9B30Z Drainage of Bladder with Drainage Device, Percutaneous Approach (ICD-10-PCS; 2022-11-05)
PROC: 4A133R1 Monitoring of Arterial Saturation, Peripheral, Percutaneous Approach (ICD-10-PCS; 2022-11-05)
PROC: 5A1945Z Respiratory Ventilation, 24-96 Consecutive Hours (ICD-10-PCS; 2022-11-05)
PROC: 3E03329 Introduction of Other Anti-infective into Peripheral Vein, Percutaneous Approach (ICD-10-PCS; 2022-11-05)
PROC: 3E053XZ Introduction of Vasopressor into Peripheral Artery, Percutaneous Approach (ICD-10-PCS; 2022-11-05)
PROC: 0W9G0ZZ Drainage of Peritoneal Cavity, Open Approach (ICD-10-PCS; 2022-11-05)
PROC: 30243J1 Transfusion of Nonautologous Serum Albumin into Central Vein, Percutaneous Approach (ICD-10-PCS; 2022-11-11)
DX: T83.091A Other mechanical complication of indwelling urethral catheter, initial encounter (principal); A41.51 Sepsis due to Escherichia coli [E. coli]; E43 Unspecified severe protein-calorie malnutrition; G93.41 Metabolic encephalopathy; R65.21 Severe sepsis with septic shock; A41.53 Sepsis due to Serratia; K65.9 Peritonitis, unspecified; J96.01 Acute respiratory failure with hypoxia; K63.1 Perforation of intestine (nontraumatic); I63.9 Cerebral infarction, unspecified; K65.1 Peritoneal abscess; T83.511A Infection and inflammatory reaction due to indwelling urethral catheter, initial encounter; N17.9 Acute kidney failure, unspecified; Z68.1 Body mass index [BMI] 19.9 or less, adult; E87.1 Hypo-osmolality and hyponatremia; E87.20 Acidosis, unspecified; R64 Cachexia; E87.0 Hyperosmolality and hypernatremia; Z79.84 Long term (current) use of oral hypoglycemic drugs; Z66 Do not resuscitate; Z51.5 Encounter for palliative care; Z88.6 Allergy status to analgesic agent; Z79.899 Other long term (current) drug therapy; J44.9 Chronic obstructive pulmonary disease, unspecified; N40.0 Benign prostatic hyperplasia without lower urinary tract symptoms; E78.5 Hyperlipidemia, unspecified; R13.12 Dysphagia, oropharyngeal phase; E11.22 Type 2 diabetes mellitus with diabetic chronic kidney disease; N18.2 Chronic kidney disease, stage 2 (mild); I12.9 Hypertensive chronic kidney disease with stage 1 through stage 4 chronic kidney disease, or unspecified chronic kidney disease; Z98.49 Cataract extraction status, unspecified eye; E87.6 Hypokalemia; N30.90 Cystitis, unspecified without hematuria; F01.50 Vascular dementia, unspecified severity, without behavioral disturbance, psychotic disturbance, mood disturbance, and anxiety; Z74.01 Bed confinement status; N31.9 Neuromuscular dysfunction of bladder, unspecified; D63.1 Anemia in chronic kidney disease; Z86.73 Personal history of transient ischemic attack (TIA), and cerebral infarction without residual deficits; Y84.6 Urinary catheterization as the cause of abnormal reaction of the patient, or of later complication, without mention of misadventure at the time of the procedure; E83.42 Hypomagnesemia
CPT/HCPCS: 36415; 36416; 71045; 74018; 74176; 74177; 74230; 80048; 80053; 81001; 82040; 82533; 82570; 82805; 83605; 83735; 84100; 84145; 85025; 85610; 85730; 87040; 87070; 87077; 87086; 87186; 87205; 94002; 94003; 94760; 96361; 96365; 96366; 96367; 96375; 97139; C2627; J0692; J0696; J1650; J1815; J2250; J2272; J2370; J2704; J3010; J3370-JW; J3475; J3480; J3490; J7030; J7050; J7070; J7120; P9045; P9047; Q9967; S0028